=== PATIENT | female | born 1935 | race Caucasian/White ===

== ENCOUNTER → 2017-01-23 | Outpatient (CLI) | payer MEDICARE, BC ==
--- NOTE | 2017-01-24 15:12 | CR ---
EXAM DATE: 01/23/17 PATIENT'S AGE: 81 Patient: PASCUAL CHAVIRA Facility: [place], [place] Site . Site : 1935 Study: XRay Abdomen [id number]/[id number] 5:16:47 PM Ordering Physician: Ritchie June Final Report: Indication: Pain. Technique: View. Impression: Nonspecific bowel gas pattern with air and stool throughout the colon. No air- filled dilated small bowel. Extensive posterior and interbody lumbar fusion L1 through L5. Cardiac pacing wires. Heart size is mildly enlarged. Scarring or small effusions blunt the costophrenic angles slightly. Mild osteoarthritis left greater than right hips. Dictated by Alex Perrin MD @ Jan 24 2017 2:28PM (Electronic Signature) Report Signed by Proxy. KIA
== END ==
LOC: MW.CHIM 15:21
PROVIDERS: ATTEND Internal Medicine
DX: I50.9 Heart failure, unspecified (principal); I27.2 Other secondary pulmonary hypertension; R10.9 Unspecified abdominal pain; Z98.1 Arthrodesis status; M16.0 Bilateral primary osteoarthritis of hip; E87.8 Other disorders of electrolyte and fluid balance, not elsewhere classified; E86.0 Dehydration
CPT/HCPCS: 36415; 74020; 74020-26; 80053; 80074; 81001; 83540; 83880; 85025; 85652; 86140; G0463

== ENCOUNTER → 2017-01-25 | Outpatient (CLI) | payer MEDICARE, BC | LOC: MW.CHIM 10:46 | PROVIDERS: ATTEND Internal Medicine | DX: E87.6 Hypokalemia (principal); R10.9 Unspecified abdominal pain; E87.8 Other disorders of electrolyte and fluid balance, not elsewhere classified; E86.0 Dehydration; T50.2X5A Adverse effect of carbonic-anhydrase inhibitors, benzothiadiazides and other diuretics, initial encounter | CPT/HCPCS: 36415; 80053; 85025; G0463 ==

== ENCOUNTER → 2017-01-30 | Outpatient (CLI) | payer MEDICARE, BC ==
[2017-01-30 11:53] LABS: CHLORIDE,CL 98 mmol/L (98-110); SODIUM,NA 138 mmol/L (136-146)
== END ==
LOC: MW.CHIM 10:53
PROVIDERS: ATTEND Internal Medicine
DX: E87.6 Hypokalemia (principal); E87.8 Other disorders of electrolyte and fluid balance, not elsewhere classified; E86.9 Volume depletion, unspecified; I50.9 Heart failure, unspecified; E86.0 Dehydration
CPT/HCPCS: 36415; 80048; G0463

== ENCOUNTER 2017-02-04 08:29 | Inpatient (IN) | payer MEDICARE, BC ==
[2017-02-04] MEDS ORDERED: Albuterol/Ipratropium 3.0-0.5 MG/3 ML Neb Soln NEB ONE (08:38)
--- NOTE | 2017-02-04 08:42 | EDM.PDOC ---
ED HPI GENERAL MEDICAL PROBLEM - General Stated Complaint: AMBALANCE Time Seen by Provider: 02/04/17 08:43 Source of Information: Reports: Patient History Limitations: Reports: No Limitations - History of Present Illness INITIAL COMMENTS - FREE TEXT/NARRATIVE: History of present illness: [] She presents with shortness of breath that began yesterday. It has progressed and this morning she felt like her "bra was too tight" but denied chest pain. She denies cough, fevers, chills, dizziness or syncope. Patient is followed by Dr. Ayon and Dr. SANDS she has a pacemaker was recently taken off of all of her cardiac meds and just kept on Lasix due to decreasing renal function per patient. She uses 2 inhalers at home and has been using them without improvement. Review of systems: As per history of present illness and below otherwise all systems reviewed and negative. Past medical history: As per history of present illness and as reviewed below otherwise noncontributory. Surgical history: As per history of present illness and as reviewed below otherwise noncontributory. Social history: No reported history of drug or alcohol abuse. Family history: As per history of present illness and as reviewed below otherwise noncontributory. Physical exam: General: Well developed, well nourished in NAD HEENT: Atraumatic, normocephalic, pupils reactive, negative for conjunctival pallor or scleral icterus, mucous membranes dry, throat clear, neck supple, nontender, trachea midline. Lungs: Clear to auscultation, breath sounds equal bilaterally, chest nontender. Crackles bilateral bases no respiratory distress Heart: S1S2, regular, negative for clicks, rubs, or JVD. Positive bilateral lower extremity edema 2 Abdomen: Soft, nondistended, nontender. Negative for masses or hepatosplenomegaly. Negative for costovertebral tenderness. Pelvis: Stable nontender. Genitourinary: Deferred. Rectal: Deferred. Extremities: Atraumatic, negative for cords or calf pain. Neurovascular unremarkable. Neuro: Awake, alert, oriented. Cranial nerves II through XII unremarkable. Cerebellum unremarkable. Motor and sensory unremarkable throughout. Exam nonfocal. Diagnostics: [] Labs and chest x-ray shows CHF exacerbation with atelectasis on chest x-ray possible early pneumonia in the right lower lobe versus atelectasis on x-ray Therapeutics: [] Patient was given breathing treatments while in the ED and remained stable Impression: [] CHF exacerbation Plan: [] Admit for observation and further treatment Definitive disposition and diagnosis as appropriate pending reevaluation and review of above. - Related Data Allergies Allergy/AdvReac Type Severity Reaction Status Date / Time hydrochlorothiazide Allergy Cannot Verified 06/21/15 16:22 Remember Sulfa (Sulfonamide Allergy Cannot Verified 06/21/15 16:22 Antibiotics) Remember Home Meds: Home Meds Aspirin 81 mg PO DAILY 06/21/15 [History] Cholecalciferol (Vitamin D3) [Vitamin D3] 2,000 unit PO DAILY 06/21/15 [History] Fish Oil/[place]-3 Fatty Acids [Fish Oil] 1,000 mg PO DAILY 06/21/15 [History] Furosemide 80 mg PO DAILY 06/21/15 [History] Losartan [Cozaar] 100 mg PO DAILY 06/21/15 [History] Lutein 6 mg PO DAILY 06/21/15 [History] Metoprolol Tartrate 50 mg PO BID 06/21/15 [History] Omeprazole 20 mg PO DAILY 06/21/15 [History] Simvastatin [Zocor] 20 mg PO DAILY 06/21/15 [History] Zinc 50 mg PO DAILY 06/21/15 [History] amLODIPine/atorvaSTATin [Amlodipine-Atorvast 2.5-20 mg] 2.5 mg PO DAILY [History] Albuterol Sulfate [Proair Respiclick] 1 puff INH ASDIRECTED 02/04/17 [History] Clopidogrel [Plavix] 75 mg PO DAILY 02/04/17 [History] Glycerin/Propylene Glycol [Artificial Tears Drops] 1 drop EYEBOTH BID 02/04/17 [ History] Sertraline HCl [Sertraline HCl] 100 mg PO DAILY 02/04/17 [History] Sildenafil Citrate [Sildenafil] 20 mg PO DAILY 02/04/17 [History] Spironolactone [Aldactone] 25 mg PO DAILY 02/04/17 [History] Tiotropium [Spiriva HandiHaler] 18 mcg INH DAILY 02/04/17 [History] Past Medical History Other HEENT History: detatch retina right eye Other Musculoskeletal History: carpal tunnel syndrome. back surgery , fussion (L ,3,4,5) Social & Family History - Tobacco Use Smoking Status *Q: Former Smoker - Recreational Drug Use Recreational Drug Use: No ED ROS GENERAL - Review of Systems Review Of Systems: See Below (See history of present illness) ED EXAM, GENERAL - Physical Exam Exam: See Below (See history of present illness) Course - Vital Signs Last Recorded V/S: Last Vital Signs Temp 36.4 C 02/04/17 08:34 Pulse 78 02/04/17 09:59 Resp 20 02/04/17 09:59 BP 111/70 02/04/17 09:59 Pulse Ox 95 02/04/17 09:59 - Orders/Labs/Meds Orders: Active Orders 24 hr Category Date Time Status Cardiac Monitoring [RC] . DIRECTED Care 02/04/17 08:31 Active EKG Documentation Completion [RC] STAT Care 02/04/17 08:31 Active Oxygen Therapy, ED [RC] ASDIRECTED Care 02/04/17 08:31 Active RT Aerosol Therapy [RC] ASDIRECTED Care 02/04/17 08:38 Active Chest 2V [CR] Stat Exams 02/04/17 08:31 Taken Labs: Laboratory Tests 02/04/17 02/04/17 02/04/17 Range/Units 08:43 08:43 08:43 WBC 11.90 H (4.0-11.0) K/uL RBC 4.07 L (4.30-5.90) M/uL Hgb 11.6 L (12.0-16.0) g/dL Hct 36.4 (36.0-46.0) % MCV 89.4 (80.0-98.0) fL MCH 28.5 (27.0-32.0) pg MCHC 31.9 (31.0-37.0) g/dL RDW Std Deviation 49.1 (28.0-62.0) fl RDW Coeff of [place] 15 (11.0-15.0) % Plt Count 201 (150-400) K/uL MPV 9.00 (7.40-12.00) fL Neut % (Auto) 72.0 (48.0-80.0) % Lymph % (Auto) 11.5 L (16.0-40.0) % [place] % (Auto) 7.6 (0.0-15.0) % Eos % (Auto) 8.5 H (0.0-7.0) % Baso % (Auto) 0.4 (0.0-1.5) % Neut # (Auto) 8.6 H (1.4-5.7) K/uL Lymph # (Auto) 1.4 (0.6-2.4) K/uL [place] # (Auto) 0.9 H (0.0-0.8) K/uL Eos # (Auto) 1.0 H (0.0-0.7) K/uL Baso # (Auto) 0.1 (0.0-0.1) K/uL Nucleated RBC % 0.0 /100WBC Nucleated RBCs # 0 K/uL Sodium 138 (136-146) mmol/L Potassium 3.9 (3.5-5.1) mmol/L Chloride 105 (98-110) mmol/L Carbon Dioxide 22 (21-31) mmol/L BUN 14 (6.0-23.0) mg/dL Creatinine 0.9 (0.6-1.5) mg/dL Est Cr Clr Drug Dosing 34.62 mL/min Estimated GFR (MDRD) 59.9 ml/min Glucose 160 H (60-110) mg/dL Calcium 9.0 (8.8-10.8) mg/dL Total Bilirubin 1.2 (0.1-1.5) mg/dL AST 49 H (5-40) IU/L ALT 59 H (8-54) IU/L Alkaline Phosphatase 50 (40-150) Troponin I < 0.10 (0.0-0.29) NG/ML B-Natriuretic Peptide (<100) PG/ML Total Protein 7.2 (6.0-8.0) g/dL Albumin 3.8 (3.4-4.8) g/dL Globulin 3.4 (2.0-3.5) g/dL Albumin/Globulin Ratio 1.1 L (1.3-2.8) Urine Color Urine Appearance Urine pH (5.0-8.0) Ur Specific [place] (1.001-1.035) Urine Protein (NEGATIVE) mg/dL Urine Glucose (UA) (NEGATIVE) mg/dL Urine Ketones (NEGATIVE) mg/dL Urine Occult Blood (NEGATIVE) Urine Nitrite (NEGATIVE) Urine Bilirubin (NEGATIVE) Urine Urobilinogen (<2.0) EU/dL Ur Leukocyte Esterase (NEGATIVE) Urine RBC (0-2/HPF) Urine WBC (0-5/HPF) Ur Epithelial Cells (NONE-FEW) Urine Bacteria (NEGATIVE) 02/04/17 02/04/17 Range/Units 08:43 09:00 WBC (4.0-11.0) K/uL RBC (4.30-5.90) M/uL Hgb (12.0-16.0) g/dL Hct (36.0-46.0) % MCV (80.0-98.0) fL MCH (27.0-32.0) pg MCHC (31.0-37.0) g/dL RDW Std Deviation (28.0-62.0) fl RDW Coeff of [place] (11.0-15.0) % Plt Count (150-400) K/uL MPV (7.40-12.00) fL Neut % (Auto) (48.0-80.0) % Lymph % (Auto) (16.0-40.0) % [place] % (Auto) (0.0-15.0) % Eos % (Auto) (0.0-7.0) % Baso % (Auto) (0.0-1.5) % Neut # (Auto) (1.4-5.7) K/uL Lymph # (Auto) (0.6-2.4) K/uL [place] # (Auto) (0.0-0.8) K/uL Eos # (Auto) (0.0-0.7) K/uL Baso # (Auto) (0.0-0.1) K/uL Nucleated RBC % /100WBC Nucleated RBCs # K/uL Sodium (136-146) mmol/L Potassium (3.5-5.1) mmol/L Chloride (98-110) mmol/L Carbon Dioxide (21-31) mmol/L BUN (6.0-23.0) mg/dL Creatinine (0.6-1.5) mg/dL Est Cr Clr Drug Dosing mL/min Estimated GFR (MDRD) ml/min Glucose (60-110) mg/dL Calcium (8.8-10.8) mg/dL Total Bilirubin (0.1-1.5) mg/dL AST (5-40) IU/L ALT (8-54) IU/L Alkaline Phosphatase (40-150) Troponin I (0.0-0.29) NG/ML B-Natriuretic Peptide 699 H (<100) PG/ML Total Protein (6.0-8.0) g/dL Albumin (3.4-4.8) g/dL Globulin (2.0-3.5) g/dL Albumin/Globulin Ratio (1.3-2.8) Urine Color YELLOW Urine Appearance CLEAR Urine pH 6.0 (5.0-8.0) Ur Specific [place] 1.010 (1.001-1.035) Urine Protein NEGATIVE (NEGATIVE) mg/dL Urine Glucose (UA) NEGATIVE (NEGATIVE) mg/dL Urine Ketones NEGATIVE (NEGATIVE) mg/dL Urine Occult Blood NEGATIVE (NEGATIVE) Urine Nitrite NEGATIVE (NEGATIVE) Urine Bilirubin NEGATIVE (NEGATIVE) Urine Urobilinogen 0.2 (<2.0) EU/dL Ur Leukocyte Esterase NEGATIVE (NEGATIVE) Urine RBC 0-1 (0-2/HPF) Urine WBC 0-1 (0-5/HPF) Ur Epithelial Cells RARE (NONE-FEW) Urine Bacteria RARE (NEGATIVE) Meds: Medications Discontinued Medications Generic Name Dose Route Start Last Admin Trade Name Freq PRN Reason Stop Dose Admin Albuterol/Ipratropium 3 ml 02/04/17 08:38 02/04/17 08:47 Duoneb 3.0-0.5 Mg/3 Ml NEB 02/04/17 08:39 3 ml ONETIME ONE Administration Departure - Departure Time of Disposition: 10:15 Disposition: Admitted As Inpatient 65 Condition: good Clinical Impression: Atelectasis CHF exacerbation Qualifiers: Congestive heart failure type: unspecified congestive heart failure type Qualified Code(s): I50.9 - Heart failure, unspecified - Discharge Information - My Orders Last 24 Hours: My Active Orders 02/04/17 08:31 Cardiac Monitoring [RC] . DIRECTED EKG Documentation Completion [RC] STAT Oxygen Therapy, ED [RC] ASDIRECTED Chest 2V [CR] Stat 02/04/17 08:38 RT Aerosol Therapy [RC] ASDIRECTED - Assessment/Plan Last 24 Hours: My Active Orders 02/04/17 08:31 Cardiac Monitoring [RC] . DIRECTED EKG Documentation Completion [RC] STAT Oxygen Therapy, ED [RC] ASDIRECTED Chest 2V [CR] Stat 02/04/17 08:38 RT Aerosol Therapy [RC] ASDIRECTED
[2017-02-04] MEDS ORDERED: Acetaminophen 325 MG Tab PO PRN (11:26)
[2017-02-04] MEDS ORDERED: Sodium Chloride 0.9% 10 ML Syringe FLUSH PRN (11:26)
[2017-02-04] MEDS ORDERED: Temazepam 15 MG Cap PO PRN (11:26)
[2017-02-04] MEDS ORDERED: Bisacodyl 5 MG Tab PO PRN (11:26)
[2017-02-04] MEDS ORDERED: Sodium Chloride 0.9% 2.5 ML Syringe FLUSH PRN (11:26)
[2017-02-04] MEDS ORDERED: Furosemide 40 MG/4 ML VIAL IVPUSH ONE (12:00)
[2017-02-04] MEDS: Albuterol/Ipratropium 3.0-0.5 MG/3 ML Neb Soln NEB SCH ×3 (12:03→22:53)
--- NOTE | 2017-02-04 12:12 | PCM.HP ---
H&P History of Present Illness - General Date of Service: 02/04/17 Admit Problem/Dx: Admission Diagnosis/Problem Admission Diagnosis/Problem Pneumonia Source of Information: Patient, Family, Provider, RN - History of Present Illness Initial Comments - Free Text/Narative: She presented to the ED this am with complaint of severe dyspnea. She has not noted fever. She sleeps in a recliner No chest pain. no cough - Related Data Allergies/Adverse Reactions: Allergies Allergy/AdvReac Type Severity Reaction Status Date / Time hydrochlorothiazide Allergy Cannot Verified 06/21/15 16:22 Remember Sulfa (Sulfonamide Allergy Cannot Verified 06/21/15 16:22 Antibiotics) Remember Home Medications: Home Meds Aspirin 81 mg PO DAILY 06/21/15 [History] Cholecalciferol (Vitamin D3) [Vitamin D3] 2,000 unit PO DAILY 06/21/15 [History] Fish Oil/[place]-3 Fatty Acids [Fish Oil] 1,000 mg PO DAILY 06/21/15 [History] Furosemide 20 mg PO BID 06/21/15 [History] Losartan [Cozaar] 100 mg PO DAILY 06/21/15 [History] Lutein 6 mg PO DAILY 06/21/15 [History] Metoprolol Tartrate 50 mg PO BID 06/21/15 [History] Omeprazole 20 mg PO DAILY 06/21/15 [History] Simvastatin [Zocor] 20 mg PO DAILY 06/21/15 [History] Zinc 50 mg PO DAILY 06/21/15 [History] amLODIPine/atorvaSTATin [Amlodipine-Atorvast 2.5-20 mg] 2.5 mg PO DAILY [History] Albuterol Sulfate [Proair Respiclick] 1 puff INH ASDIRECTED 02/04/17 [History] Clopidogrel [Plavix] 75 mg PO DAILY 02/04/17 [History] Glycerin/Propylene Glycol [Artificial Tears Drops] 1 drop EYEBOTH BID 02/04/17 [ History] Sertraline HCl [Sertraline HCl] 100 mg PO DAILY 02/04/17 [History] Sildenafil Citrate [Sildenafil] 20 mg PO DAILY 02/04/17 [History] Spironolactone [Aldactone] 25 mg PO DAILY 02/04/17 [History] Tiotropium [Spiriva HandiHaler] 18 mcg INH DAILY 02/04/17 [History] Past Medical History HEENT History: Reports: Other (See Below) Other HEENT History: detatch retina right eye Cardiovascular History: Reports: Afib, CAD, Hypertension, MS, Stents Respiratory History: Reports: COPD, Other (See Below) Other Respiratory History: Pulmonary HTN Gastrointestinal History: Reports: Chronic Constipation, Hemorrhoids. Denies: Cirrhosis Genitourinary History: Reports: UTI, Recurrent. Denies: Chronic Renal Insuffiency [employer] History: Reports: Musculoskeletal History: Reports: Other (See Below) Other Musculoskeletal History: carpal tunnel syndrome. back surgery , fussion (L ,3,4,5) Neurological History: Reports: None. Denies: Alzheimers Disease, CVA, MS, Seizure Psychiatric History: Reports: Anxiety Endocrine/Metabolic History: Reports: Osteoporosis. 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 in the past) - Infectious Disease History Infectious Disease History: Reports: Chicken Pox - Past Surgical History Head Surgeries/Procedures: Reports: None HEENT Surgical History: Reports: Eye Surgery Cardiovascular Surgical History: Reports: Carotid Stents, Pacer Respiratory Surgical History: Reports: None GI Surgical History: Reports: Appendectomy Female Surgical History: Reports: Hysterectomy, Other (See Below) Other Female Surgeries/Procedures: Bladder repair Endocrine Surgical History: Reports: None Neurological Surgical History: Reports: None Musculoskeletal Surgical History: Reports: Other (See Below) Other Musculoskeletal Surgeries/Procedures:: torn achilles tendon repair, carpal tunnel Dermatological Surgical History: Reports: None Social & Family History - Family History Family Medical History: Noncontributory HEENT: Reports: Glaucoma, Macular Degeneration Cardiac: Reports: MS GI: Reports: None Neurological: Reports: CVA Oncologic: Reports: Breast, Skin, Uterine - Tobacco Use Smoking Status *Q: Former Smoker Years of Tobacco use: 20 Used Tobacco, but Quit: Yes Month Tobacco Last Used: 09/1959 Second Hand Smoke Exposure: No - Caffeine Use Caffeine Use: Reports: None - Recreational Drug Use Recreational Drug Use: No H&P Review of Systems - Review of Systems: Review Of Systems: See Below General: Denies: Fever, Chills, Diaphoresis HEENT: Denies: Ear Pain Pulmonary: Reports: Shortness of Breath. Denies: Cough, Sputum, Hemoptysis Cardiovascular: Denies: Chest Pain, Palpitations Gastrointestinal: Denies: Abdominal Pain, Hematemesis, Hematochezia, Melena, Nausea, Vomiting Exam - Exam Exam: See Below - Vital Signs Vital Signs: Last Vital Signs Temp 97.6 F 02/04/17 11:53 Pulse 71 02/04/17 11:53 Resp 22 H 02/04/17 11:53 BP 105/47 L 02/04/17 11:53 Pulse Ox 93 L 02/04/17 11:53 Weight: 166.2 kg - Exam Quality Assessment: Supplemental Oxygen General: Alert, Oriented, Cooperative HEENT: Conjunctiva Clear, EOMI Neck: Supple, Trachea Midline Lungs: Clear to Auscultation, Other (some increased work of breathing; prolongation of expiration) Cardiovascular: Irregular Rhythm, Other (monitor shows wide QRS with varied morphology; some paced beats; irregular rhythm) Abdomen: Soft. No: Distention (Female) Exam: Deferred Extremities: Edema (one plus bilateral pretibial edema) Neurological: Cranial Nerves Intact, Normal Speech Neuro Extensive - Motor, Sensory, Reflexes: No: Facial palsy (L), Facial Palsy ( R), Hemeplagia (R), Hemeplagia (L) Psychiatric: Alert, Normal Affect. No: Depressed, Agitated - Patient Data Result Diagrams: 02/04/17 08:43 02/04/17 08:43 Imaging Impressions last 24 hrs: CXR: hyperexpansion; pacemaker noted; infiltrate LLL; increased pulmonary vascular prominence *Q Meaningful Use (ADM) - VTE *Q VTE Criteria *Q: - Stroke *Q Stroke Criteria *Q: - AMI *Q AMI Criteria *Q: - Problem List (1) CAD (coronary artery disease) SNOMED Code(s): 71099156 ICD Code: I25.10 - ATHSCL HEART DISEASE OF [place] CORONARY ARTERY W/O ANG PCTRS Status: Acute Current Visit: Yes (2) Pneumonia SNOMED Code(s): 975681629 ICD Code: J18.9 - PNEUMONIA, UNSPECIFIED ORGANISM Status: Acute Current Visit: Yes (3) Hypoxia SNOMED Code(s): 334076839, 157745801 ICD Code: R09.02 - HYPOXEMIA Status: Acute Current Visit: Yes (4) CHF exacerbation SNOMED Code(s): 94530234 ICD Code: I50.9 - HEART FAILURE, UNSPECIFIED Status: Acute Current Visit : Yes Qualifiers: Congestive heart failure type: unspecified congestive heart failure type Qualified Code(s): I50.9 - Heart failure, unspecified (5) Cardiac dysrhythmia SNOMED Code(s): 308632348 ICD Code: I49.9 - CARDIAC ARRHYTHMIA, UNSPECIFIED Status: Acute Current Visit: No Qualifiers: Arrhythmia type: unspecified cardiac arrhythmia Qualified Code(s): I49.9 - Cardiac arrhythmia, unspecified Problem List Initiated/Reviewed/Updated: Yes Orders Last 24hrs: Active Orders 24 hr Category Date Time Status Admission Status [Patient Status] [ADT] Routine ADT 02/04/17 10:23 Active Patient Status [ADT] Routine ADT 02/04/17 11:26 Active Cardiac Monitoring [RC] . DIRECTED Care 02/04/17 10:23 Active Communication Order [RC] ASDIRECTED Care 02/04/17 11:34 Active Oxygen Therapy [RC] PRN Care 02/04/17 11:26 Active RT Aerosol Therapy [RC] ASDIRECTED Care 02/04/17 11:32 Active Telemetry Monitoring [Cardiac Monitoring] [RC] Q8H Care 02/04/17 10:05 Active VTE/DVT Education [RC] PER UNIT ROUTINE Care 02/04/17 11:26 Active Vital Signs [RC] Q4H Care 02/04/17 11:26 Active Regular Diet [DIET] Diet 02/04/17 Lunch Active B-TYPE NATRIURETIC PEPTIDE,BNP [CHEM] AM Lab 02/05/17 05:11 Ordered B-TYPE NATRIURETIC PEPTIDE,BNP [CHEM] AM Lab 02/06/17 05:11 Ordered CBC WITH AUTO DIFF [HEME] AM Lab 02/05/17 05:11 Ordered CBC WITH AUTO DIFF [HEME] AM Lab 02/06/17 05:11 Ordered CBC WITH AUTO DIFF [HEME] AM Lab 02/07/17 05:11 Ordered CBC WITH AUTO DIFF [HEME] AM Lab 02/08/17 05:11 Ordered COMPREHENSIVE METABOLIC PN,CMP [CHEM] AM Lab 02/05/17 05:11 Ordered COMPREHENSIVE METABOLIC PN,CMP [CHEM] AM Lab 02/06/17 05:11 Ordered COMPREHENSIVE METABOLIC PN,CMP [CHEM] AM Lab 02/07/17 05:11 Ordered COMPREHENSIVE METABOLIC PN,CMP [CHEM] AM Lab 02/08/17 05:11 Ordered LIPID PANEL [CHEM] Routine Lab 02/05/17 05:00 Ordered MAGNESIUM [CHEM] AM Lab 02/05/17 05:11 Ordered MAGNESIUM [CHEM] AM Lab 02/06/17 05:11 Ordered MAGNESIUM [CHEM] AM Lab 02/07/17 05:11 Ordered MAGNESIUM [CHEM] AM Lab 02/08/17 05:11 Ordered Acetaminophen [Tylenol] Med 02/04/17 11:26 Active 325 mg PO Q4H PRN Albuterol/Ipratropium [DuoNeb 3.0-0.5 MG/3 ML] Med 02/04/17 11:45 Active 3 ml NEB Q6H Aspirin Med 02/05/17 09:00 Active 81 mg PO DAILY Bisacodyl [Dulcolax] Med 02/04/17 11:26 Active 5 mg PO DAILY PRN Clopidogrel [Plavix] Med 02/05/17 09:00 Active 75 mg PO DAILY Enoxaparin [Lovenox] Med 02/05/17 09:00 Active 40 mg SUBCUT DAILY Fish Oil/[place]-3 Fatty Acids [Fish Oil] Med 02/05/17 09:00 Active 1 gm PO DAILY Furosemide [Lasix] Med 02/04/17 21:00 Active 20 mg PO BID Glycerin/Propylene Glycol [Artificial Tears Drops] Med 02/04/17 21:00 Active 1 drop EYEBOTH BID Levofloxacin/Dextrose 5%-Water [Levaquin in D5W 750 MG/ Med 02/04/17 12:00 Active 150 ML] 750 mg Premix Bag 1 bag IV Q48H Simvastatin [Zocor] Med 02/05/17 09:00 Active 20 mg PO DAILY Sodium Chloride 0.9% [Saline Flush] Med 02/04/17 11:26 Active 10 ml FLUSH ASDIRECTED PRN Sodium Chloride 0.9% [Saline Flush] Med 02/04/17 11:26 Active 2.5 ml FLUSH ASDIRECTED PRN Spironolactone [Aldactone] Med 02/05/17 09:00 Active 25 mg PO DAILY Temazepam [Restoril] Med 02/04/17 11:26 Active 15 mg PO BEDTIME PRN Saline Lock Insert [OM.PC] Routine Oth 02/04/17 11:26 Ordered Resuscitation Status Routine Resus Stat 02/04/17 11:26 Ordered Medication Orders Acetaminophen (Tylenol) 325 mg PO Q4H PRN PRN Reason: Pain (Mild 1-3)/fever Albuterol/Ipratropium (Duoneb 3.0-0.5 Mg/3 Ml) 3 ml NEB Q6H [facility] Last Admin: 02/04/17 12:03 Dose: 3 ml Aspirin (Aspirin) 81 mg PO DAILY [facility] Bisacodyl (Dulcolax) 5 mg PO DAILY PRN PRN Reason: Constipation Clopidogrel Bisulfate (Plavix) 75 mg PO DAILY [facility] Enoxaparin Sodium (Lovenox) 40 mg SUBCUT DAILY [facility] Fish Oil (Fish Oil) 1 gm PO DAILY [facility] Furosemide (Lasix) 20 mg PO BID [facility] Levofloxacin/Dextrose 750 mg/ (Premix) 150 mls @ 100 mls/hr IV Q48H [facility] Non-Formulary Medication (Glycerin/Propylene Glycol [Artificial Tears Drops]) 1 drop EYEBOTH BID [facility] Simvastatin (Zocor) 20 mg PO DAILY [facility] Sodium Chloride (Saline Flush) 10 ml FLUSH ASDIRECTED PRN PRN Reason: Keep Vein Open Sodium Chloride (Saline Flush) 2.5 ml FLUSH ASDIRECTED PRN PRN Reason: Keep Vein Open Spironolactone (Aldactone) 25 mg PO DAILY [facility] Temazepam (Restoril) 15 mg PO BEDTIME PRN PRN Reason: Sleep Assessment/Plan Comment:: she denies a known history of CHF will seek results of echo at Dr Johnson's office I suspect that she also has pneumonia based on CXR and clinical picture monitor closely elevated LFTs might be related to gut edema will cover with levaquin. She requests DNR status. Kevin Che MD
[2017-02-04] MEDS: Levofloxacin/Dextrose 5%-Water 750 MG in Premix Bag 1 BAG IV SCH (12:22)
[2017-02-04] MEDS: Furosemide 20 MG Tab PO SCH (20:40)
[2017-02-04] MEDS: GLYCERIN EYEBOTH SCH (22:05)
[2017-02-04] MEDS: PROPYLENE GLYCOL EYEBOTH SCH (22:05)
[2017-02-04] MEDS: [UNRECOGNIZED DRUG - OTHER] EYEBOTH SCH (22:05)
[2017-02-05 05:55] LABS: CHLORIDE,CL 104 mmol/L (98-110); SODIUM,NA 140 mmol/L (136-146)
[2017-02-05] MEDS: Albuterol/Ipratropium 3.0-0.5 MG/3 ML Neb Soln NEB SCH ×4 (05:55→23:44)
[2017-02-05] MEDS: Aspirin 81 MG Tab.Chew PO SCH (08:18)
[2017-02-05] MEDS: Simvastatin 20 MG Tab PO SCH (08:18)
[2017-02-05] MEDS: Furosemide 20 MG Tab PO SCH ×2 (08:18→20:50)
[2017-02-05] MEDS: Spironolactone 25 MG Tab PO SCH (08:19)
[2017-02-05] MEDS: Fish Oil/Omega-3 Fatty Acids 1 Gm Cap PO SCH (08:19)
[2017-02-05] MEDS: Clopidogrel 75 MG Tab PO SCH (08:19)
[2017-02-05] MEDS: Enoxaparin 40 MG/0.4 ML Syringe SUBCUT SCH (08:19)
[2017-02-05] MEDS: PROPYLENE GLYCOL EYEBOTH SCH ×2 (08:25→20:39)
[2017-02-05] MEDS: GLYCERIN EYEBOTH SCH ×2 (08:25→20:39)
[2017-02-05] MEDS: [UNRECOGNIZED DRUG - OTHER] EYEBOTH SCH ×2 (08:25→20:39)
[2017-02-05] MEDS ORDERED: Potassium Chloride 20 MEQ Tab.ER PO ONE (11:18)
--- NOTE | 2017-02-05 11:33 | PCM.PN ---
[id number] is still short of breath but she feels improved. - Patient Data Vitals - most recent: Last Vital Signs Temp 98.8 F 02/05/17 04:00 Pulse 84 02/05/17 04:00 Resp 16 02/05/17 04:00 BP 116/72 02/05/17 04:00 Pulse Ox 92 L 02/05/17 04:00 Weight - most recent: 75.387 kg I&O - last 24 hours: Intake & Output 02/04/17 02/05/17 02/05/17 22:59 06:59 14:59 Intake Total 600 250 Output Total 2050 1050 Balance -1450 -800 Lab Results last 24 hrs: Laboratory Results - last 24 hr 02/05/17 02/05/17 02/05/17 Range/Units 04:55 04:55 04:55 WBC 9.91 (4.0-11.0) K/uL RBC 3.77 L (4.30-5.90) M/uL Hgb 10.8 L (12.0-16.0) g/dL Hct 34.1 L (36.0-46.0) % MCV 90.5 (80.0-98.0) fL MCH 28.6 (27.0-32.0) pg MCHC 31.7 (31.0-37.0) g/dL RDW Std Deviation 50.4 (28.0-62.0) fl RDW Coeff of German 15 (11.0-15.0) % Plt Count 205 (150-400) K/uL MPV 9.10 (7.40-12.00) fL Neut % (Auto) 63.2 (48.0-80.0) % Lymph % (Auto) 16.5 (16.0-40.0) % [place] % (Auto) 10.8 (0.0-15.0) % Eos % (Auto) 9.0 H (0.0-7.0) % Baso % (Auto) 0.5 (0.0-1.5) % Neut # (Auto) 6.3 H (1.4-5.7) K/uL Lymph # (Auto) 1.6 (0.6-2.4) K/uL [place] # (Auto) 1.1 H (0.0-0.8) K/uL Eos # (Auto) 0.9 H (0.0-0.7) K/uL Baso # (Auto) 0.1 (0.0-0.1) K/uL Nucleated RBC % 0.0 /100WBC Nucleated RBCs # 0 K/uL Sodium 140 (136-146) mmol/L Potassium 3.3 L (3.5-5.1) mmol/L Chloride 104 (98-110) mmol/L Carbon Dioxide 27 (21-31) mmol/L BUN 13 (6.0-23.0) mg/dL Creatinine 0.8 (0.6-1.5) mg/dL Est Cr Clr Drug Dosing 38.94 mL/min Estimated GFR (MDRD) > 60.0 ml/min Glucose 98 (60-110) mg/dL Calcium 8.9 (8.8-10.8) mg/dL Magnesium 1.6 (1.5-2.3) mEq/L Total Bilirubin 1.2 (0.1-1.5) mg/dL AST 36 (5-40) IU/L ALT 45 (8-54) IU/L Alkaline Phosphatase 42 (40-150) B-Natriuretic Peptide (<100) PG/ML Total Protein 6.8 (6.0-8.0) g/dL Albumin 3.5 (3.4-4.8) g/dL Globulin 3.3 (2.0-3.5) g/dL Albumin/Globulin Ratio 1.1 L (1.3-2.8) Triglycerides 61 (10-190) mg/dL Cholesterol 100 L (131-240) mg/dL LDL Cholesterol, Calc 48 L (60-180) mg/dL VLDL Cholesterol 12 (5-55) mg/dL HDL Cholesterol 40 (40-80) mg/dL Cholesterol/HDL Ratio 2.5 L (3.3-6.0) 05/14/17 Range/Units 04:55 WBC (4.0-11.0) K/uL RBC (4.30-5.90) M/uL Hgb (12.0-16.0) g/dL Hct (36.0-46.0) % MCV (80.0-98.0) fL MCH (27.0-32.0) pg MCHC (31.0-37.0) g/dL RDW Std Deviation (28.0-62.0) fl RDW Coeff of German (11.0-15.0) % Plt Count (150-400) K/uL MPV (7.40-12.00) fL Neut % (Auto) (48.0-80.0) % Lymph % (Auto) (16.0-40.0) % [place] % (Auto) (0.0-15.0) % Eos % (Auto) (0.0-7.0) % Baso % (Auto) (0.0-1.5) % Neut # (Auto) (1.4-5.7) K/uL Lymph # (Auto) (0.6-2.4) K/uL [place] # (Auto) (0.0-0.8) K/uL Eos # (Auto) (0.0-0.7) K/uL Baso # (Auto) (0.0-0.1) K/uL Nucleated RBC % /100WBC Nucleated RBCs # K/uL Sodium (136-146) mmol/L Potassium (3.5-5.1) mmol/L Chloride (98-110) mmol/L Carbon Dioxide (21-31) mmol/L BUN (6.0-23.0) mg/dL Creatinine (0.6-1.5) mg/dL Est Cr Clr Drug Dosing mL/min Estimated GFR (MDRD) ml/min Glucose (60-110) mg/dL Calcium (8.8-10.8) mg/dL Magnesium (1.5-2.3) mEq/L Total Bilirubin (0.1-1.5) mg/dL AST (5-40) IU/L ALT (8-54) IU/L Alkaline Phosphatase (40-150) B-Natriuretic Peptide 512 H (<100) PG/ML Total Protein (6.0-8.0) g/dL Albumin (3.4-4.8) g/dL Globulin (2.0-3.5) g/dL Albumin/Globulin Ratio (1.3-2.8) Triglycerides (10-190) mg/dL Cholesterol (131-240) mg/dL LDL Cholesterol, Calc (60-180) mg/dL VLDL Cholesterol (5-55) mg/dL HDL Cholesterol (40-80) mg/dL Cholesterol/HDL Ratio (3.3-6.0) Med Orders - Current: Current Medications Acetaminophen (Tylenol) 325 mg PO Q4H PRN PRN Reason: Pain (Mild 1-3)/fever Albuterol/Ipratropium (Duoneb 3.0-0.5 Mg/3 Ml) 3 ml NEB Q6H [facility] Last Admin: 02/05/17 05:55 Dose: 3 ml Aspirin (Aspirin) 81 mg PO DAILY [facility] Last Admin: 02/05/17 08:18 Dose: 81 mg Bisacodyl (Dulcolax) 5 mg PO DAILY PRN PRN Reason: Constipation Clopidogrel Bisulfate (Plavix) 75 mg PO DAILY [facility] Last Admin: 02/05/17 08:19 Dose: 75 mg Enoxaparin Sodium (Lovenox) 40 mg SUBCUT DAILY [facility] Last Admin: 02/05/17 08:19 Dose: 40 mg Fish Oil (Fish Oil) 1 gm PO DAILY [facility] Last Admin: 02/05/17 08:19 Dose: 1 gm Furosemide (Lasix) 20 mg PO BID [facility] Last Admin: 02/05/17 08:18 Dose: 20 mg Levofloxacin/Dextrose 750 mg/ (Premix) 150 mls @ 100 mls/hr IV Q48H [facility] Last Admin: 02/04/17 12:22 Dose: 100 mls/hr Non-Formulary Medication (Glycerin/Propylene Glycol [Artificial Tears Drops]) 1 drop EYEBOTH BID [facility] Last Admin: 02/05/17 08:25 Dose: Not Given Simvastatin (Zocor) 20 mg PO DAILY [facility] Last Admin: 02/05/17 08:18 Dose: 20 mg Sodium Chloride (Saline Flush) 10 ml FLUSH ASDIRECTED PRN PRN Reason: Keep Vein Open Sodium Chloride (Saline Flush) 2.5 ml FLUSH ASDIRECTED PRN PRN Reason: Keep Vein Open Spironolactone (Aldactone) 25 mg PO DAILY [facility] Last Admin: 02/05/17 08:19 Dose: 25 mg Temazepam (Restoril) 15 mg PO BEDTIME PRN PRN Reason: Sleep Last Admin: 02/04/17 22:06 Dose: 15 mg Discontinued Medications Albuterol/Ipratropium (Duoneb 3.0-0.5 Mg/3 Ml) 3 ml NEB ONETIME ONE Stop: 02/04/17 08:39 Last Admin: 02/04/17 08:47 Dose: 3 ml Furosemide (Lasix) 40 mg IVPUSH NOW ONE Stop: 02/04/17 12:01 Last Admin: 02/04/17 12:22 Dose: 40 mg Potassium Chloride (Klor-Con M20) 40 meq PO ONETIME ONE Stop: 02/05/17 11:19 - Exam Quality Assessment: supplemental oxygen General: alert, oriented Neck: trachea midline Lungs: Other (good tidal volumes; faint rales over the right lateral/posterior chest) - Problem List & Annotations (1) CAD (coronary artery disease) SNOMED Code(s): 09782110 Code(s): I25.10 - ATHSCL HEART DISEASE OF [place] CORONARY ARTERY W/O ANG PCTRS Status: Acute Current Visit: Yes (2) Pneumonia SNOMED Code(s): 555299825 Code(s): J18.9 - PNEUMONIA, UNSPECIFIED ORGANISM Status: Acute Current Visit: Yes (3) Hypoxia SNOMED Code(s): 441251934, 050870549 Code(s): R09.02 - HYPOXEMIA Status: Acute Current Visit: Yes (4) CHF exacerbation SNOMED Code(s): 97650145 Code(s): I50.9 - HEART FAILURE, UNSPECIFIED Status: Acute Current Visit: Yes Qualifiers: Congestive heart failure type: unspecified congestive heart failure type Qualified Code(s): I50.9 - Heart failure, unspecified (5) Cardiac dysrhythmia SNOMED Code(s): 529431949 Code(s): I49.9 - CARDIAC ARRHYTHMIA, UNSPECIFIED Status: Acute Current Visit: No Qualifiers: Arrhythmia type: unspecified cardiac arrhythmia Qualified Code(s): I49.9 - Cardiac arrhythmia, unspecified - Problem List Review Problem List Initiated/Reviewed/Updated: Yes - My Orders Last 24 Hours: My Active Orders 02/04/17 11:26 Patient Status [ADT] Routine Oxygen Therapy [RC] PRN Vital Signs [RC] Q4H Acetaminophen [Tylenol] 325 mg PO Q4H PRN Bisacodyl [Dulcolax] 5 mg PO DAILY PRN Sodium Chloride 0.9% [Saline Flush] 10 ml FLUSH ASDIRECTED PRN Sodium Chloride 0.9% [Saline Flush] 2.5 ml FLUSH ASDIRECTED PRN Temazepam [Restoril] 15 mg PO BEDTIME PRN Saline Lock Insert [OM.PC] Routine Resuscitation Status Routine 02/04/17 11:32 RT Aerosol Therapy [RC] ASDIRECTED 02/04/17 11:34 Communication Order [RC] ASDIRECTED 02/04/17 11:45 Albuterol/Ipratropium [DuoNeb 3.0-0.5 MG/3 ML] 3 ml NEB Q6H 02/04/17 12:00 Levofloxacin/Dextrose 5%-Water [Levaquin in D5W 750 MG/150 ML] 750 mg Premix Bag 1 bag IV Q48H 02/04/17 21:00 Furosemide [Lasix] 20 mg PO BID Glycerin/Propylene Glycol [Artificial Tears Drops] 1 drop EYEBOTH BID 02/04/17 Lunch Regular Diet [DIET] 02/05/17 09:00 Aspirin 81 mg PO DAILY Clopidogrel [Plavix] 75 mg PO DAILY Enoxaparin [Lovenox] 40 mg SUBCUT DAILY Fish Oil/[place]-3 Fatty Acids [Fish Oil] 1 gm PO DAILY Simvastatin [Zocor] 20 mg PO DAILY Spironolactone [Aldactone] 25 mg PO DAILY 02/06/17 05:11 B-TYPE NATRIURETIC PEPTIDE,BNP [CHEM] AM CBC WITH AUTO DIFF [HEME] AM COMPREHENSIVE METABOLIC PN,CMP [CHEM] AM LIPID PANEL [CHEM] Routine MAGNESIUM [CHEM] AM 02/07/17 05:11 CBC WITH AUTO DIFF [HEME] AM COMPREHENSIVE METABOLIC PN,CMP [CHEM] AM MAGNESIUM [CHEM] AM 02/08/17 05:11 CBC WITH AUTO DIFF [HEME] AM COMPREHENSIVE METABOLIC PN,CMP [CHEM] AM MAGNESIUM [CHEM] AM - Plan Plan:: she denies a known history of CHF will seek results of echo at Dr Johnson's office I suspect that she also has pneumonia based on CXR and clinical picture monitor closely elevated LFTs might be related to gut edema will cover with levaquin. She requests DNR status. Kevin Che MD 02/05/2017 I think that her symptoms are likely mainly due to pneumonia at this point. records from cardiology pending continue levaquin if RA oxygen saturation above 90% tomorrow am, likely discharge then. K3.3 noted; will supplement and recheck tomorrow. Kevin Che MD
--- NOTE | 2017-02-05 11:33 | PCM.SN ---
- Free Text/Narrative Note: she has an appointment with Dr Dugan tomorrow at 16:00 hrs. Anticipate discharge by lunch time tomorrow likely. Dickson MD
--- NOTE | 2017-02-05 17:53 | PCM.SN ---
- Free Text/Narrative Note: She talked to me about "code status". She desires full code but no long term care social worker life support as "a vegetable". will change to code level I Rodger Che MD
[2017-02-05] MEDS ORDERED: LORazepam 0.5 MG Tab PO PRN (20:37)
[2017-02-06] MEDS: Albuterol/Ipratropium 3.0-0.5 MG/3 ML Neb Soln NEB SCH ×4 (04:59→23:08)
[2017-02-06 05:38] LABS: CHLORIDE,CL 104 mmol/L (98-110); SODIUM,NA 140 mmol/L (136-146)
[2017-02-06] MEDS: Fish Oil/Omega-3 Fatty Acids 1 Gm Cap PO SCH (08:17)
[2017-02-06] MEDS: Clopidogrel 75 MG Tab PO SCH (08:17)
[2017-02-06] MEDS: Spironolactone 25 MG Tab PO SCH (08:17)
[2017-02-06] MEDS: Aspirin 81 MG Tab.Chew PO SCH (08:17)
[2017-02-06] MEDS: Simvastatin 20 MG Tab PO SCH (08:17)
[2017-02-06] MEDS: PROPYLENE GLYCOL EYEBOTH SCH (08:18)
[2017-02-06] MEDS: Furosemide 20 MG Tab PO SCH ×2 (08:18→20:31)
[2017-02-06] MEDS: Enoxaparin 40 MG/0.4 ML Syringe SUBCUT SCH (08:18)
[2017-02-06] MEDS: [UNRECOGNIZED DRUG - OTHER] EYEBOTH SCH (08:18)
[2017-02-06] MEDS: GLYCERIN EYEBOTH SCH (08:18)
[2017-02-06] MEDS: Carboxymethylcellulose Sodium 0.5% Ophth Soln 0.4 ML UD Box of 30 EYEBOTH SCH ×2 (09:11→20:31)
--- NOTE | 2017-02-06 12:06 | PCM.PN ---
- General Info Date of Service: 02/06/17 Admission Dx/Problem (Free Text): Admission Diagnosis/Problem Admission Diagnosis/Problem Pneumonia Functional Status: Reports: pain controlled - Review of Systems General: Reports: No Symptoms HEENT: Reports: no symptoms Pulmonary: Reports: shortness of breath Cardiovascular: Reports: Dyspnea on Exertion, Edema Gastrointestinal: Reports: No symptoms Genitourinary: Reports: no symptoms Musculoskeletal: Reports: no symptoms Skin: Reports: no symptoms Neurological: Reports: No Symptoms Psychiatric: Reports: no symptoms - Patient Data Vitals - most recent: Last Vital Signs Temp 36.5 C 02/06/17 07:53 Pulse 76 02/06/17 07:53 Resp 16 02/06/17 07:53 BP 126/60 02/06/17 07:53 Pulse Ox 92 L 02/06/17 07:53 Weight - most recent: 76 kg I&O - last 24 hours: Intake & Output 02/05/17 02/06/17 02/06/17 22:59 06:59 14:59 Intake Total 900 250 Output Total 1500 1250 Balance -600 -1000 Lab Results last 24 hrs: Laboratory Results - last 24 hr 02/05/17 02/06/17 02/06/17 Range/Units 19:28 04:58 04:58 WBC 9.06 (4.0-11.0) K/uL RBC 3.65 L (4.30-5.90) M/uL Hgb 10.4 L (12.0-16.0) g/dL Hct 33.1 L (36.0-46.0) % MCV 90.7 (80.0-98.0) fL MCH 28.5 (27.0-32.0) pg MCHC 31.4 (31.0-37.0) g/dL RDW Std Deviation 51.4 (28.0-62.0) fl RDW Coeff of German 16 H (11.0-15.0) % Plt Count 196 (150-400) K/uL MPV 8.70 (7.40-12.00) fL Neut % (Auto) 58.4 (48.0-80.0) % Lymph % (Auto) 15.8 L (16.0-40.0) % [place] % (Auto) 9.6 (0.0-15.0) % Eos % (Auto) 15.8 H (0.0-7.0) % Baso % (Auto) 0.4 (0.0-1.5) % Neut # (Auto) 5.3 (1.4-5.7) K/uL Lymph # (Auto) 1.4 (0.6-2.4) K/uL [place] # (Auto) 0.9 H (0.0-0.8) K/uL Eos # (Auto) 1.4 H (0.0-0.7) K/uL Baso # (Auto) 0.0 (0.0-0.1) K/uL Nucleated RBC % 0.0 /100WBC Nucleated RBCs # 0 K/uL Sodium 140 (136-146) mmol/L Potassium 4.1 (3.5-5.1) mmol/L Chloride 104 (98-110) mmol/L Carbon Dioxide 27 (21-31) mmol/L BUN 12 (6.0-23.0) mg/dL Creatinine 0.8 (0.6-1.5) mg/dL Est Cr Clr Drug Dosing 38.94 mL/min Estimated GFR (MDRD) > 60.0 ml/min Glucose 104 (60-110) mg/dL POC Glucose 121 H (60-110) mg/dL Calcium 9.0 (8.8-10.8) mg/dL Magnesium 1.7 (1.5-2.3) mEq/L Total Bilirubin 1.0 (0.1-1.5) mg/dL AST 31 (5-40) IU/L ALT 38 (8-54) IU/L Alkaline Phosphatase 39 L (40-150) B-Natriuretic Peptide (<100) PG/ML Total Protein 6.6 (6.0-8.0) g/dL Albumin 3.4 (3.4-4.8) g/dL Globulin 3.2 (2.0-3.5) g/dL Albumin/Globulin Ratio 1.1 L (1.3-2.8) Triglycerides 54 (10-190) mg/dL Cholesterol 100 L (131-240) mg/dL LDL Cholesterol, Calc 46 L (60-180) mg/dL VLDL Cholesterol 11 (5-55) mg/dL HDL Cholesterol 43 (40-80) mg/dL Cholesterol/HDL Ratio 2.3 L (3.3-6.0) 02/06/17 Range/Units 04:58 WBC (4.0-11.0) K/uL RBC (4.30-5.90) M/uL Hgb (12.0-16.0) g/dL Hct (36.0-46.0) % MCV (80.0-98.0) fL MCH (27.0-32.0) pg MCHC (31.0-37.0) g/dL RDW Std Deviation (28.0-62.0) fl RDW Coeff of German (11.0-15.0) % Plt Count (150-400) K/uL MPV (7.40-12.00) fL Neut % (Auto) (48.0-80.0) % Lymph % (Auto) (16.0-40.0) % [place] % (Auto) (0.0-15.0) % Eos % (Auto) (0.0-7.0) % Baso % (Auto) (0.0-1.5) % Neut # (Auto) (1.4-5.7) K/uL Lymph # (Auto) (0.6-2.4) K/uL [place] # (Auto) (0.0-0.8) K/uL Eos # (Auto) (0.0-0.7) K/uL Baso # (Auto) (0.0-0.1) K/uL Nucleated RBC % /100WBC Nucleated RBCs # K/uL Sodium (136-146) mmol/L Potassium (3.5-5.1) mmol/L Chloride (98-110) mmol/L Carbon Dioxide (21-31) mmol/L BUN (6.0-23.0) mg/dL Creatinine (0.6-1.5) mg/dL Est Cr Clr Drug Dosing mL/min Estimated GFR (MDRD) ml/min Glucose (60-110) mg/dL POC Glucose (60-110) mg/dL Calcium (8.8-10.8) mg/dL Magnesium (1.5-2.3) mEq/L Total Bilirubin (0.1-1.5) mg/dL AST (5-40) IU/L ALT (8-54) IU/L Alkaline Phosphatase (40-150) B-Natriuretic Peptide 442 H (<100) PG/ML Total Protein (6.0-8.0) g/dL Albumin (3.4-4.8) g/dL Globulin (2.0-3.5) g/dL Albumin/Globulin Ratio (1.3-2.8) Triglycerides (10-190) mg/dL Cholesterol (131-240) mg/dL LDL Cholesterol, Calc (60-180) mg/dL VLDL Cholesterol (5-55) mg/dL HDL Cholesterol (40-80) mg/dL Cholesterol/HDL Ratio (3.3-6.0) Med Orders - Current: Current Medications Acetaminophen (Tylenol) 325 mg PO Q4H PRN PRN Reason: Pain (Mild 1-3)/fever Albuterol/Ipratropium (Duoneb 3.0-0.5 Mg/3 Ml) 3 ml NEB Q6H [facility] Last Admin: 02/06/17 04:59 Dose: 3 ml Artificial Tears (Refresh Plus 0.5%) 1 each EYEBOTH BID [facility] Last Admin: 02/06/17 09:11 Dose: 1 drop Aspirin (Aspirin) 81 mg PO DAILY [facility] Last Admin: 02/06/17 08:17 Dose: 81 mg Bisacodyl (Dulcolax) 5 mg PO DAILY PRN PRN Reason: Constipation Clopidogrel Bisulfate (Plavix) 75 mg PO DAILY [facility] Last Admin: 02/06/17 08:17 Dose: 75 mg Enoxaparin Sodium (Lovenox) 40 mg SUBCUT DAILY [facility] Last Admin: 02/06/17 08:18 Dose: 40 mg Fish Oil (Fish Oil) 1 gm PO DAILY [facility] Last Admin: 02/06/17 08:17 Dose: 1 gm Furosemide (Lasix) 20 mg PO BID [facility] Last Admin: 02/06/17 08:18 Dose: 20 mg Levofloxacin/Dextrose 750 mg/ (Premix) 150 mls @ 100 mls/hr IV Q48H [facility] Last Admin: 02/04/17 12:22 Dose: 100 mls/hr Lorazepam (Ativan) 0.5 mg PO Q6H PRN PRN Reason: Agitation Last Admin: 02/05/17 20:50 Dose: 0.5 mg Simvastatin (Zocor) 20 mg PO BEDTIME [facility] Sodium Chloride (Saline Flush) 10 ml FLUSH ASDIRECTED PRN PRN Reason: Keep Vein Open Sodium Chloride (Saline Flush) 2.5 ml FLUSH ASDIRECTED PRN PRN Reason: Keep Vein Open Spironolactone (Aldactone) 25 mg PO DAILY [facility] Last Admin: 02/06/17 08:17 Dose: 25 mg Temazepam (Restoril) 15 mg PO BEDTIME PRN PRN Reason: Sleep Last Admin: 02/04/17 22:06 Dose: 15 mg Discontinued Medications Albuterol/Ipratropium (Duoneb 3.0-0.5 Mg/3 Ml) 3 ml NEB ONETIME ONE Stop: 02/04/17 08:39 Last Admin: 02/04/17 08:47 Dose: 3 ml Furosemide (Lasix) 40 mg IVPUSH NOW ONE Stop: 02/04/17 12:01 Last Admin: 02/04/17 12:22 Dose: 40 mg Non-Formulary Medication (Glycerin/Propylene Glycol [Artificial Tears Drops]) 1 drop EYEBOTH BID [facility] Last Admin: 02/06/17 08:18 Dose: Not Given Potassium Chloride (Klor-Con M20) 40 meq PO ONETIME ONE Stop: 02/05/17 11:19 Last Admin: 02/05/17 12:31 Dose: 40 meq Simvastatin (Zocor) 20 mg PO DAILY [facility] Last Admin: 02/06/17 08:17 Dose: 20 mg - Exam Quality Assessment: supplemental oxygen General: alert, oriented, cooperative, mild distress Neck: supple, no JVD, +2 carotid pulse wo bruit Lungs: Decreased breath sounds, Crackles, Rales Cardiovascular: Regular Rate, Regular Rhythm Abdomen: bowel sounds present, soft, no tenderness, no distension Extremities: edema (mild pedal edema) Wound/Incisions: healing well Neurological: no new focal deficit - Problem List Review Problem List Initiated/Reviewed/Updated: Yes - Plan Plan:: 02/06/17 Patient still requiring 2L of O2 and complaining of GARCIA pulmonary exam BL diminshed breath sounds at bases with wet crackles and poor aeration continue to monitor and try to wean off O2 anticipate DC tomorrow continue as per orders 02/05/17 she denies a known history of CHF will seek results of echo at Dr Johnson's office I suspect that she also has pneumonia based on CXR and clinical picture monitor closely elevated LFTs might be related to gut edema will cover with levaquin. She requests DNR status. Kevin Che MD 02/05/2017 I think that her symptoms are likely mainly due to pneumonia at this point. records from cardiology pending continue levaquin if RA oxygen saturation above 90% tomorrow am, likely discharge then. K3.3 noted; will supplement and recheck tomorrow. Kevin Che MD
[2017-02-06] MEDS: Levofloxacin/Dextrose 5%-Water 750 MG in Premix Bag 1 BAG IV SCH (12:38)
[2017-02-06] MEDS: Docusate Sodium 100 MG Cap PO PRN (12:38)
--- NOTE | 2017-02-06 14:47 | CR ---
EXAM DATE: 02/04/17 PATIENT'S AGE: 81 Patient: PASCUAL CHAVIRA Facility: [place], [place] Site . Site : [id number] Study: XRay Chest [id number]/13/2017 9:18:51 AM Ordering Physician: Doctor Sewell Final Report: HISTORY: Dyspnea, low oxygen saturation. TECHNIQUE: Two views of the chest. COMPARISON: 09/30/2016. FINDINGS: Pacer device with leads terminating within the right atrium and right ventricle. Cardiomegaly as before. New small bilateral pleural effusions. Increased pulmonary interstitial prominence likely indicating interstitial edema. Small area of more focal opacity within the right lower lung zone laterally could relate to an area of atelectasis or small infiltrate. There is no pneumothorax. Prior lumbar spinal instrumentation. IMPRESSION: 1. Findings of CHF with interstitial edema and new small bilateral pleural effusions. 2. Small area of more focal opacity within the right lower lung zone laterally may relate to a small infiltrate or area of atelectasis. Dictated by Joseph Caputo MD @ 02/04/2017 9:50:34 AM Dictated by: Joseph Caputo MD @ 02/04/2017 09:50:40 (Electronic Signature) Report Signed by Proxy. KIA
[2017-02-07] MEDS: Albuterol/Ipratropium 3.0-0.5 MG/3 ML Neb Soln NEB SCH ×2 (05:43→11:19)
[2017-02-07 05:45] LABS: CHLORIDE,CL 105 mmol/L (98-110); SODIUM,NA 141 mmol/L (136-146)
[2017-02-07] MEDS: Furosemide 20 MG Tab PO SCH (09:30)
[2017-02-07] MEDS: Clopidogrel 75 MG Tab PO SCH (09:30)
[2017-02-07] MEDS: Aspirin 81 MG Tab.Chew PO SCH (09:30)
[2017-02-07] MEDS: Fish Oil/Omega-3 Fatty Acids 1 Gm Cap PO SCH (09:30)
[2017-02-07] MEDS: Docusate Sodium 100 MG Cap PO PRN (09:30)
[2017-02-07] MEDS: Enoxaparin 40 MG/0.4 ML Syringe SUBCUT SCH (09:33)
[2017-02-07] MEDS: Carboxymethylcellulose Sodium 0.5% Ophth Soln 0.4 ML UD Box of 30 EYEBOTH SCH (09:34)
[2017-02-07] MEDS: Spironolactone 25 MG Tab PO SCH (09:37)
--- NOTE | 2017-02-07 10:06 | PCM.DCSUM1 ---
Discharge Summary - Hospital Course Free Text/Narrative:: ] 81 yo fm with history of Pulmonary Fibrosis admitted to hospital on 02/04/17 for hypoxia, pneumonia and chf exacerbation. She had no previous history of CHF. At admission she had leukocytosis & CXR done which showed interstitial edema, BL pleural effusions & right side infiltrate vs. atelectatic region. Her BNP was also elevated to 699. She was treated with Lasix, Spironolactone and Levaquin. She improved daily but we were unable to get her off oxygen. Patients resting and sleeping O2 sat was normal but she desaturated with activity. She will be sent home on O2. Patient will also be needing home health. She is homebound secondary to hypoxia and pulmonary fibrosis. She will need PT/OT strengthening with home safety evaluation. The plan of care will be overseen by her PCP Dr. Dobbs. She was discharged on 02/07/17. No changes were made to her medications during hospitalization. SHe was sent home on Oxygen PRN during activity. SHe was also sent home with 3 tabs of Levaquin which she is to take every other day to complete course. - Discharge Data Discharge Date: 02/07/17 Discharge Disposition: Home, W Home Health Agency 06 Condition: Good - Patient Instructions Diet: Usual Diet as Tolerated Activity: As Tolerated Notify Provider of: Fever, Increased Pain, Swelling and Redness, Drainage, Nausea and/or Vomiting - Discharge Plan Prescriptions/Med Rec: Levofloxacin [Levaquin] 750 mg PO ASDIRECTED #3 tablet Home Medications: Home Meds Aspirin 81 mg PO DAILY 06/21/15 [History] Cholecalciferol (Vitamin D3) [Vitamin D3] 2,000 unit PO DAILY 06/21/15 [History] Fish Oil/[place]-3 Fatty Acids [Fish Oil 1,000 MG] 1,000 mg PO DAILY 06/21/15 [ History] Furosemide 40 mg PO BID 06/21/15 [History] Losartan [Cozaar] 100 mg PO DAILY 06/21/15 [History] Lutein 6 mg PO DAILY 06/21/15 [History] Metoprolol Tartrate 50 mg PO BID 06/21/15 [History] Omeprazole 20 mg PO ACBREAKFAST 06/21/15 [History] Simvastatin [Zocor] 20 mg PO BEDTIME 06/21/15 [History] Zinc 50 mg PO DAILY 06/21/15 [History] Albuterol Sulfate [Proair Respiclick] 1 puff INH ASDIRECTED 02/04/17 [History] Clopidogrel [Plavix] 75 mg PO DAILY 02/04/17 [History] Glycerin/Propylene Glycol [Artificial Tears Drops] 1 drop EYEBOTH BID 02/04/17 [ History] Sertraline HCl 100 mg PO DAILY 02/04/17 [History] Sildenafil Citrate [Sildenafil] 20 mg PO TID 02/04/17 [History] Spironolactone [Aldactone] 25 mg PO DAILY 02/04/17 [History] Metolazone [Zaroxolyn] 10 mg PO Q2D@0800 02/06/17 [History] Ondansetron 4 mg PO TID PRN 02/06/17 [History] Potassium Chloride [Klor-Con M20] 20 meq PO BID 02/06/17 [History] Tiotropium [place] [Spiriva Respimat] 5 mcg IH DAILY 02/06/17 [History] amLODIPine Besylate [Amlodipine Besylate] 5 mg PO BID 02/06/17 [History] Levofloxacin [Levaquin] 750 mg PO ASDIRECTED #3 tablet 02/07/17 [Rx] Patient Handouts: Heart Failure, [id number], Community-Acquired Pneumonia, Adult, [id number] Referrals: Slade Dugan MD [Primary Care Provider] - 02/08/17 4:00 pm - Discharge Summary/Plan Comment DC Time >30 min.: No - Patient Data Vitals - Most Recent: Last Vital Signs Temp 36.9 C 02/07/17 08:00 Pulse 70 02/07/17 08:00 Resp 16 02/07/17 08:00 BP 118/73 02/07/17 08:00 Pulse Ox 93 L 02/07/17 08:00 Weight - Most Recent: 76 kg I&O - Last 24 hours: Intake & Output 02/06/17 02/07/17 02/07/17 22:59 06:59 14:59 Intake Total 1040 600 Output Total 1100 1190 Balance -60 -590 Lab Results - Last 24 hrs: Laboratory Results - last 24 hr 02/07/17 02/07/17 Range/Units 04:40 04:43 WBC 11.84 H (4.0-11.0) K/uL RBC 4.06 L (4.30-5.90) M/uL Hgb 11.7 L (12.0-16.0) g/dL Hct 36.9 (36.0-46.0) % MCV 90.9 (80.0-98.0) fL MCH 28.8 (27.0-32.0) pg MCHC 31.7 (31.0-37.0) g/dL RDW Std Deviation 51.4 (28.0-62.0) fl RDW Coeff of German 16 H (11.0-15.0) % Plt Count 252 (150-400) K/uL MPV 9.30 (7.40-12.00) fL Neut % (Auto) 59.4 (48.0-80.0) % Lymph % (Auto) 17.7 (16.0-40.0) % [place] % (Auto) 9.4 (0.0-15.0) % Eos % (Auto) 13.0 H (0.0-7.0) % Baso % (Auto) 0.5 (0.0-1.5) % Neut # (Auto) 7.0 H (1.4-5.7) K/uL Lymph # (Auto) 2.1 (0.6-2.4) K/uL [place] # (Auto) 1.1 H (0.0-0.8) K/uL Eos # (Auto) 1.5 H (0.0-0.7) K/uL Baso # (Auto) 0.1 (0.0-0.1) K/uL Nucleated RBC % 0.0 /100WBC Nucleated RBCs # 0 K/uL Sodium 141 (136-146) mmol/L Potassium 4.0 (3.5-5.1) mmol/L Chloride 105 (98-110) mmol/L Carbon Dioxide 24 (21-31) mmol/L BUN 11 (6.0-23.0) mg/dL Creatinine 0.8 (0.6-1.5) mg/dL Est Cr Clr Drug Dosing 38.94 mL/min Estimated GFR (MDRD) > 60.0 ml/min Glucose 106 (60-110) mg/dL Calcium 8.9 (8.8-10.8) mg/dL Magnesium 1.5 (1.5-2.3) mEq/L Total Bilirubin 1.0 (0.1-1.5) mg/dL AST 31 (5-40) IU/L ALT 35 (8-54) IU/L Alkaline Phosphatase 49 (40-150) Total Protein 6.7 (6.0-8.0) g/dL Albumin 3.7 (3.4-4.8) g/dL Globulin 3.0 (2.0-3.5) g/dL Albumin/Globulin Ratio 1.2 L (1.3-2.8) Med Orders - Current: Current Medications Acetaminophen (Tylenol) 325 mg PO Q4H PRN PRN Reason: Pain (Mild 1-3)/fever Albuterol/Ipratropium (Duoneb 3.0-0.5 Mg/3 Ml) 3 ml NEB Q6H [facility] Last Admin: 02/07/17 05:43 Dose: 3 ml Artificial Tears (Refresh Plus 0.5%) 1 each EYEBOTH BID [facility] Last Admin: 02/07/17 09:34 Dose: 1 drop Aspirin (Aspirin) 81 mg PO DAILY [facility] Last Admin: 02/07/17 09:30 Dose: 81 mg Bisacodyl (Dulcolax) 5 mg PO DAILY PRN PRN Reason: Constipation Clopidogrel Bisulfate (Plavix) 75 mg PO DAILY [facility] Last Admin: 02/07/17 09:30 Dose: 75 mg Docusate Sodium (Colace) 100 mg PO BID PRN PRN Reason: Constipation Last Admin: 02/07/17 09:30 Dose: 100 mg Enoxaparin Sodium (Lovenox) 40 mg SUBCUT DAILY [facility] Last Admin: 02/07/17 09:33 Dose: 40 mg Fish Oil (Fish Oil) 1 gm PO DAILY [facility] Last Admin: 02/07/17 09:30 Dose: 1 gm Furosemide (Lasix) 20 mg PO BID [facility] Last Admin: 02/07/17 09:30 Dose: 20 mg Levofloxacin/Dextrose 750 mg/ (Premix) 150 mls @ 100 mls/hr IV Q48H [facility] Last Admin: 02/06/17 12:38 Dose: 100 mls/hr Lorazepam (Ativan) 0.5 mg PO Q6H PRN PRN Reason: Agitation Last Admin: 02/05/17 20:50 Dose: 0.5 mg Simvastatin (Zocor) 20 mg PO BEDTIME [facility] Sodium Chloride (Saline Flush) 10 ml FLUSH ASDIRECTED PRN PRN Reason: Keep Vein Open Sodium Chloride (Saline Flush) 2.5 ml FLUSH ASDIRECTED PRN PRN Reason: Keep Vein Open Spironolactone (Aldactone) 25 mg PO DAILY [facility] Last Admin: 02/07/17 09:37 Dose: 25 mg Temazepam (Restoril) 15 mg PO BEDTIME PRN PRN Reason: Sleep Last Admin: 02/04/17 22:06 Dose: 15 mg Discontinued Medications Albuterol/Ipratropium (Duoneb 3.0-0.5 Mg/3 Ml) 3 ml NEB ONETIME ONE Stop: 02/04/17 08:39 Last Admin: 02/04/17 08:47 Dose: 3 ml Furosemide (Lasix) 40 mg IVPUSH NOW ONE Stop: 02/04/17 12:01 Last Admin: 02/04/17 12:22 Dose: 40 mg Non-Formulary Medication (Glycerin/Propylene Glycol [Artificial Tears Drops]) 1 drop EYEBOTH BID [facility] Last Admin: 02/06/17 08:18 Dose: Not Given Potassium Chloride (Klor-Con M20) 40 meq PO ONETIME ONE Stop: 02/05/17 11:19 Last Admin: 02/05/17 12:31 Dose: 40 meq Simvastatin (Zocor) 20 mg PO DAILY [facility] Last Admin: 02/06/17 08:17 Dose: 20 mg *Q Meaningful Use (DIS) - VTE *Q VTE Criteria *Q: - Stroke *Q Stroke Criteria *Q: - AMI *Q AMI Criteria *Q:
[2017-02-07] MEDS ORDERED: Metoprolol Tartrate 50 MG Tab PO SCH (10:30)
[2017-02-07 16:40] VITALS: BP 105/65
[2017-02-07] MEDS ORDERED: Simvastatin 20 MG Tab PO SCH (21:00)
--- NOTE | 2017-02-09 12:59 | ECHO ---
EXAM DATE: 02/04/17 PATIENT'S AGE: 81 The echocardiogram report can be seen in this patient's EMR (Electronic Medical Record) in the Reports section. KIA
== END 2017-02-07 16:42 | disposition home health service (06) | DRG 195 ==
LOC: MW.ED 08:29 → UNDOADMIN 09:48 → INTOOBSV 09:48 → MW.MS 09:48 → OBSVTOIN 09:48 → MW.MS 11:26 → UNDODISIN 02-07 16:42
PROVIDERS: ADMIT Family Medicine; ATTEND Family Medicine
DX: J18.9 Pneumonia, unspecified organism (principal); J98.11 Atelectasis; R09.02 Hypoxemia; I49.9 Cardiac arrhythmia, unspecified; I25.10 Atherosclerotic heart disease of native coronary artery without angina pectoris; I11.0 Hypertensive heart disease with heart failure; I50.9 Heart failure, unspecified; Z95.5 Presence of coronary angioplasty implant and graft; Z87.891 Personal history of nicotine dependence; I48.91 Unspecified atrial fibrillation; J44.9 Chronic obstructive pulmonary disease, unspecified; K59.09 Other constipation; F41.9 Anxiety disorder, unspecified; M81.0 Age-related osteoporosis without current pathological fracture; Z79.82 Long term (current) use of aspirin; Z79.899 Other long term (current) drug therapy; Z88.2 Allergy status to sulfonamides; Z88.8 Allergy status to other drugs, medicaments and biological substances; J84.10 Pulmonary fibrosis, unspecified
CPT/HCPCS: 36415; 71020; 71020-26; 80053; 80061; 81001; 82962; 83735; 83880; 84484; 85025; 93005; 93306; 94640; 94664; 99285; 99285-25; A9270-GY; J1650; J1940; J1956

== ENCOUNTER → 2017-02-09 | Outpatient (CLI) | payer MEDICARE, BC | LOC: MW.CHIM 08:00 | PROVIDERS: ATTEND Internal Medicine | DX: I50.9 Heart failure, unspecified (principal); I42.9 Cardiomyopathy, unspecified; E78.5 Hyperlipidemia, unspecified; R73.9 Hyperglycemia, unspecified | CPT/HCPCS: 99204 ==

== ENCOUNTER 2017-03-11 11:22 | Observation (INO) | payer MEDICARE, BC ==
[2017-03-11] MEDS ORDERED: Aspirin 81 MG Tab.Chew PO ONE (11:33)
[2017-03-11] MEDS ORDERED: Alum Hydrox/Mag Hydrox/Simeth 15 ML, Metoclopramide 5 MG, Lidocaine 2% 5 ML PO ONE ×3 (11:33)
[2017-03-11] MEDS ORDERED: Famotidine 20 MG/2 ML SDV IVPUSH ONE (11:33)
[2017-03-11] MEDS ORDERED: Ketorolac 30 MG/ML SDV IVPUSH ONE (11:33)
--- NOTE | 2017-03-11 11:39 | EDM.PDOC ---
ED HPI GENERAL MEDICAL PROBLEM - General Chief Complaint: Cardiovascular Problem Stated Complaint: HEART RATE GOING UP AND DOWN Time Seen by Provider: 03/11/17 11:36 Source of Information: Reports: Patient History Limitations: Reports: No Limitations - History of Present Illness INITIAL COMMENTS - FREE TEXT/NARRATIVE: History of present illness: [81-year-old female presenting with complaints of heart irregularity. Patient indicates she does have a pacemaker but that monitoring her O2 saturation she had noticed that her heart was going faster into the low 100s and then dropping back down which is not consistent with her norm she indicates that her baseline heart rate is in the mid 70s. She denies any symptoms of dizziness, nausea or door vomiting and/or chest pain or pressure she indicated just the heart rate being inconsistent and high on her heart rate monitor concerned her she called her sister who is a nurse who indicated she should come in and be evaluated. Patient also indicates for the last several weeks that she has had intermittent bouts of diarrhea. She'll indicates she'll have a normal stool and then nothing for a couple days and then she will have repeated diarrhea that is difficult to make it to the bathroom in time. She denies taking anything to intervene or change this pattern.] Review of systems: As per history of present illness and below otherwise all systems reviewed and negative. Past medical history: As per history of present illness and as reviewed below otherwise noncontributory. Surgical history: As per history of present illness and as reviewed below otherwise noncontributory. Social history: No reported history of drug or alcohol abuse. Family history: As per history of present illness and as reviewed below otherwise noncontributory. Physical exam: HEENT: Atraumatic, normocephalic, pupils reactive, negative for conjunctival pallor or scleral icterus, mucous membranes moist, throat clear, neck supple, nontender, trachea midline. Lungs: Clear to auscultation, breath sounds equal bilaterally, chest nontender. Heart: S1S2, regular, negative for clicks, rubs, or JVD. Abdomen: Soft, nondistended, nontender. Negative for masses or hepatosplenomegaly. Negative for costovertebral tenderness. Pelvis: Stable nontender. Genitourinary: Deferred. Rectal: Deferred. Extremities: Atraumatic, negative for cords or calf pain. Neurovascular unremarkable. Neuro: Awake, alert, oriented. Cranial nerves II through XII unremarkable. Cerebellum unremarkable. Motor and sensory unremarkable throughout. Exam nonfocal. Clinical assessment is benign save that is stated by the patient in the history of present illness. Patient has no sensation of her heart rate or rhythm changing but it is captured on EKG as well as desk monitor at bedside. Diagnostics: [CBC, CMP, troponin, lipase, amylase] Therapeutics: [Chest x-ray, IV fluid,] Impression: [Irregular heartbeat] Plan: [admit for OBS with telemetry] Definitive disposition and diagnosis as appropriate pending reevaluation and review of above. no pain Pain Score (Numeric/FACES): 0 - Related Data Allergies Allergy/AdvReac Type Severity Reaction Status Date / Time hydrochlorothiazide Allergy Cannot Verified 03/11/17 11:30 Remember Sulfa (Sulfonamide Allergy Cannot Verified 03/11/17 11:30 Antibiotics) Remember Home Meds: Home Meds Aspirin 81 mg PO DAILY 06/21/15 [History] Cholecalciferol (Vitamin D3) [Vitamin D3] 2,000 unit PO DAILY 06/21/15 [History] Fish Oil/[place]-3 Fatty Acids [Fish Oil 1,000 MG] 1,000 mg PO DAILY 06/21/15 [ History] Furosemide 40 mg PO BID 06/21/15 [History] Losartan [Cozaar] 100 mg PO DAILY 06/21/15 [History] Lutein 6 mg PO DAILY 06/21/15 [History] Metoprolol Tartrate 50 mg PO BID 06/21/15 [History] Omeprazole 20 mg PO ACBREAKFAST 06/21/15 [History] Simvastatin [Zocor] 20 mg PO BEDTIME 06/21/15 [History] Zinc 50 mg PO DAILY 06/21/15 [History] Albuterol Sulfate [Proair Respiclick] 1 puff INH ASDIRECTED 02/04/17 [History] Clopidogrel [Plavix] 75 mg PO DAILY 02/04/17 [History] Glycerin/Propylene Glycol [Artificial Tears Drops] 1 drop EYEBOTH BID 02/04/17 [ History] Sertraline HCl 100 mg PO DAILY 02/04/17 [History] Sildenafil Citrate [Sildenafil] 20 mg PO TID 02/04/17 [History] Spironolactone [Aldactone] 25 mg PO DAILY 02/04/17 [History] Metolazone [Zaroxolyn] 10 mg PO Q2D@0800 02/06/17 [History] Ondansetron 4 mg PO TID PRN 02/06/17 [History] Potassium Chloride [Klor-Con M20] 20 meq PO BID 02/06/17 [History] Tiotropium [place] [Spiriva Respimat] 5 mcg IH DAILY 02/06/17 [History] amLODIPine Besylate [Amlodipine Besylate] 5 mg PO BID 02/06/17 [History] Levofloxacin [Levaquin] 750 mg PO ASDIRECTED #3 tablet 02/07/17 [Rx] Past Medical History HEENT History: Reports: Other (See Below) Other HEENT History: detatch retina right eye Cardiovascular History: Reports: Afib, CAD, Hypertension, AR, Stents Respiratory History: Reports: COPD, Other (See Below) Other Respiratory History: Pulmonary HTN Gastrointestinal History: Reports: Chronic Constipation, Hemorrhoids. Denies: Cirrhosis Genitourinary History: Reports: UTI, Recurrent. Denies: Chronic Renal Insuffiency MANAGER DISH History: Reports: Musculoskeletal History: Reports: Other (See Below) Other Musculoskeletal History: carpal tunnel syndrome. back surgery , fussion (L ,3,4,5) Neurological History: Reports: None. Denies: Alzheimers Disease, CVA, MS, Seizure Psychiatric History: Reports: Anxiety Endocrine/Metabolic History: Reports: Osteoporosis. 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 in the past) - Infectious Disease History Infectious Disease History: Reports: Chicken Pox - Past Surgical History Head Surgeries/Procedures: Reports: None HEENT Surgical History: Reports: Eye Surgery Cardiovascular Surgical History: Reports: Carotid Stents, Pacer Respiratory Surgical History: Reports: None GI Surgical History: Reports: Appendectomy Female Surgical History: Reports: Hysterectomy, Other (See Below) Other Female Surgeries/Procedures: Bladder repair Endocrine Surgical History: Reports: None Neurological Surgical History: Reports: None Musculoskeletal Surgical History: Reports: Other (See Below) Other Musculoskeletal Surgeries/Procedures:: torn achilles tendon repair, carpal tunnel Dermatological Surgical History: Reports: None Social & Family History - Family History Family Medical History: Noncontributory HEENT: Reports: Glaucoma, Macular Degeneration Cardiac: Reports: AR GI: Reports: None Neurological: Reports: CVA Oncologic: Reports: Breast, Skin, Uterine - Tobacco Use Smoking Status *Q: Former Smoker Years of Tobacco use: 20 Used Tobacco, but Quit: Yes Month Tobacco Last Used: 09/1959 Second Hand Smoke Exposure: No - Caffeine Use Caffeine Use: Reports: None - Recreational Drug Use Recreational Drug Use: No ED ROS GENERAL - Review of Systems Review Of Systems: See Below (History of present illness) ED EXAM, GENERAL - Physical Exam Exam: See Below (See history of present illness) Course - Vital Signs Last Recorded V/S: Last Vital Signs Temp 36.1 C 03/11/17 11:30 Pulse 70 03/11/17 13:21 Resp 18 03/11/17 13:21 BP 108/42 L 03/11/17 13:21 Pulse Ox 95 03/11/17 13:21 - Orders/Labs/Meds Orders: Active Orders 24 hr Category Date Time Status Antiembolic Devices [RC] PER UNIT ROUTINE Care 03/11/17 13:58 Active Cardiac Monitoring [RC] . DIRECTED Care 03/11/17 11:33 Active EKG Documentation Completion [RC] STAT Care 03/11/17 11:34 Active Intake and Output [RC] QSHIFT Care 03/11/17 13:57 Active Oxygen Therapy [RC] PRN Care 03/11/17 13:57 Active Up ad Andreia [RC] ASDIRECTED Care 03/11/17 13:57 Active VTE/DVT Education [RC] PER UNIT ROUTINE Care 03/11/17 13:57 Active Vital Signs [RC] Q4H Care 03/11/17 13:57 Active 2 Gram Sodium Diet [DIET] Diet 03/11/17 Breakfast Active Chest 1V Frontal [CR] Stat Exams 03/11/17 11:33 Taken Sodium Chloride 0.9% [Normal Saline] 1,000 ml Med 03/11/17 13:14 Active IV .Bolus Saline Lock Insert [OM.PC] Stat Oth 03/11/17 11:33 Ordered Sequential Compression Device [OM.PC] Per Unit Routine Oth 03/11/17 13:57 Ordered Resuscitation Status Routine Resus Stat 03/11/17 13:57 Ordered Medication Orders Sodium Chloride (Normal Saline) 1,000 mls @ 999 mls/hr IV .Bolus ONE Stop: 03/11/17 14:14 Labs: Laboratory Tests 03/11/17 03/11/17 03/11/17 Range/Units 11:40 11:40 11:40 WBC 8.93 (4.0-11.0) K/uL RBC 4.60 (4.30-5.90) M/uL Hgb 13.4 (12.0-16.0) g/dL Hct 40.7 (36.0-46.0) % MCV 88.5 (80.0-98.0) fL MCH 29.1 (27.0-32.0) pg MCHC 32.9 (31.0-37.0) g/dL RDW Std Deviation 52.1 (28.0-62.0) fl RDW Coeff of [place] 16 H (11.0-15.0) % Plt Count 249 (150-400) K/uL MPV 9.40 (7.40-12.00) fL Add Manual Diff YES Neutrophils % (Manual) 56 (48.0-80.0) % Lymphocytes % (Manual) 26 (16.0-40.0) % Monocytes % (Manual) 8 (0.0-15.0) % Eosinophils % (Manual) 9 H (0.0-7.0) % Basophils % (Manual) 1 (0.0-1.5) % Nucleated RBC % 0.7 /100WBC Absolute Seg Neuts 5.0 Lymphocytes # (Manual) 2.3 Monocytes # (Manual) 0.7 Eosinophils # (Manual) 0.8 Basophils # (Manual) 0 Nucleated RBCs # 0 K/uL INR 1.11 (0.86-1.11) Sodium 138 (136-146) mmol/L Potassium 3.8 (3.5-5.1) mmol/L Chloride 105 (98-110) mmol/L Carbon Dioxide 21 (21-31) mmol/L BUN 16 (6.0-23.0) mg/dL Creatinine 0.9 (0.6-1.5) mg/dL Est Cr Clr Drug Dosing 34.62 mL/min Estimated GFR (MDRD) 59.9 ml/min Glucose 110 (60-110) mg/dL Calcium 9.2 (8.8-10.8) mg/dL Total Bilirubin 0.8 (0.1-1.5) mg/dL AST 27 (5-40) IU/L ALT 18 (8-54) IU/L Alkaline Phosphatase 66 (40-150) Troponin I (0.0-0.29) NG/ML Total Protein 7.5 (6.0-8.0) g/dL Albumin 4.1 (3.4-4.8) g/dL Globulin 3.4 (2.0-3.5) g/dL Albumin/Globulin Ratio 1.2 L (1.3-2.8) Amylase 68 (10-90) U/L Lipase 73 (7-80) U/L Urine Color Urine Appearance Urine pH (5.0-8.0) Ur Specific [place] (1.001-1.035) Urine Protein (NEGATIVE) mg/dL Urine Glucose (UA) (NEGATIVE) mg/dL Urine Ketones (NEGATIVE) mg/dL Urine Occult Blood (NEGATIVE) Urine Nitrite (NEGATIVE) Urine Bilirubin (NEGATIVE) Urine Urobilinogen (<2.0) EU/dL Ur Leukocyte Esterase (NEGATIVE) Urine RBC (0-2/HPF) Urine WBC (0-5/HPF) Ur Epithelial Cells (NONE-FEW) Urine Bacteria (NEGATIVE) 03/11/17 03/11/17 Range/Units 11:40 11:55 WBC (4.0-11.0) K/uL RBC (4.30-5.90) M/uL Hgb (12.0-16.0) g/dL Hct (36.0-46.0) % MCV (80.0-98.0) fL MCH (27.0-32.0) pg MCHC (31.0-37.0) g/dL RDW Std Deviation (28.0-62.0) fl RDW Coeff of [place] (11.0-15.0) % Plt Count (150-400) K/uL MPV (7.40-12.00) fL Add Manual Diff Neutrophils % (Manual) (48.0-80.0) % Lymphocytes % (Manual) (16.0-40.0) % Monocytes % (Manual) (0.0-15.0) % Eosinophils % (Manual) (0.0-7.0) % Basophils % (Manual) (0.0-1.5) % Nucleated RBC % /100WBC Absolute Seg Neuts Lymphocytes # (Manual) Monocytes # (Manual) Eosinophils # (Manual) Basophils # (Manual) Nucleated RBCs # K/uL INR (0.86-1.11) Sodium (136-146) mmol/L Potassium (3.5-5.1) mmol/L Chloride (98-110) mmol/L Carbon Dioxide (21-31) mmol/L BUN (6.0-23.0) mg/dL Creatinine (0.6-1.5) mg/dL Est Cr Clr Drug Dosing mL/min Estimated GFR (MDRD) ml/min Glucose (60-110) mg/dL Calcium (8.8-10.8) mg/dL Total Bilirubin (0.1-1.5) mg/dL AST (5-40) IU/L ALT (8-54) IU/L Alkaline Phosphatase (40-150) Troponin I < 0.10 (0.0-0.29) NG/ML Total Protein (6.0-8.0) g/dL Albumin (3.4-4.8) g/dL Globulin (2.0-3.5) g/dL Albumin/Globulin Ratio (1.3-2.8) Amylase (10-90) U/L Lipase (7-80) U/L Urine Color YELLOW Urine Appearance CLEAR Urine pH 6.0 (5.0-8.0) Ur Specific [place] <= 1.005 (1.001-1.035) Urine Protein NEGATIVE (NEGATIVE) mg/dL Urine Glucose (UA) NEGATIVE (NEGATIVE) mg/dL Urine Ketones NEGATIVE (NEGATIVE) mg/dL Urine Occult Blood TRACE-LYSED (NEGATIVE) Urine Nitrite NEGATIVE (NEGATIVE) Urine Bilirubin NEGATIVE (NEGATIVE) Urine Urobilinogen 0.2 (<2.0) EU/dL Ur Leukocyte Esterase NEGATIVE (NEGATIVE) Urine RBC 2-4 (0-2/HPF) Urine WBC 02 (0-5/HPF) Ur Epithelial Cells FEW (NONE-FEW) Urine Bacteria FEW (NEGATIVE) Meds: Medications Generic Name Dose Route Start Last Admin Trade Name Freq PRN Reason Stop Dose Admin Sodium Chloride 1,000 mls @ 999 mls/hr 03/11/17 13:14 Normal Saline IV 03/11/17 14:14 .Bolus ONE Discontinued Medications Generic Name Dose Route Start Last Admin Trade Name Iliana PRN Reason Stop Dose Admin Aspirin 324 mg 03/11/17 11:33 03/11/17 12:02 Aspirin PO 03/11/17 11:34 243 mg ONETIME ONE Administration Al Hydroxide/Mg Hydroxide 15 0 ml 03/11/17 11:33 ml/ Metoclopramide HCl 5 mg/ PO 03/11/17 11:34 Lidocaine HCl 5 ml ONETIME ONE Famotidine 20 mg 03/11/17 11:33 03/11/17 12:02 Pepcid IVPUSH 03/11/17 11:34 20 mg ONETIME ONE Administration Ketorolac Tromethamine 30 mg 03/11/17 11:33 Toradol IVPUSH 03/11/17 11:34 ONETIME ONE Departure - Departure Time of Disposition: 13:27 Disposition: Refer to Observation Condition: Good Clinical Impression: Irregular heartbeat Referrals: Slade Dugan MD [Primary Care Provider] - Forms: ED Department Discharge - My Orders Last 24 Hours: My Active Orders 03/11/17 11:33 Cardiac Monitoring [RC] . DIRECTED Chest 1V Frontal [CR] Stat Saline Lock Insert [OM.PC] Stat 03/11/17 11:34 EKG Documentation Completion [RC] STAT 03/11/17 13:14 Sodium Chloride 0.9% [Normal Saline] 1,000 ml IV .Bolus - Assessment/Plan Last 24 Hours: My Active Orders 03/11/17 11:33 Cardiac Monitoring [RC] . DIRECTED Chest 1V Frontal [CR] Stat Saline Lock Insert [OM.PC] Stat 03/11/17 11:34 EKG Documentation Completion [RC] STAT 03/11/17 13:14 Sodium Chloride 0.9% [Normal Saline] 1,000 ml IV .Bolus
[2017-03-11] MEDS ORDERED: Sodium Chloride 0.9% 1,000 ML IV ONE (13:14)
--- NOTE | 2017-03-11 14:03 | PCM.HP ---
H&P History of Present Illness - History of Present Illness Initial Comments - Free Text/Narative: 81 yo female with pmh of pulmonary hypertension and atrial fibrillation who presents to the ED with a complaint of tachycardia. She was asymptomatic but notice her heart rate was elevated when she checked it on pulse oximeter at home. In the ED she was noted to have a heart rate of 100-120s. EKG reports HR 100 that appears to be wide complex SVT. She was given a liter of fluid and HR improved to the 70s. ED provider recommended observation. no pain Pain Score (Numeric/FACES): 0 - Related Data Allergies/Adverse Reactions: Allergies Allergy/AdvReac Type Severity Reaction Status Date / Time hydrochlorothiazide Allergy Cannot Verified 03/11/17 11:30 Remember Sulfa (Sulfonamide Allergy Cannot Verified 03/11/17 11:30 Antibiotics) Remember Home Medications: Home Meds Furosemide 20 mg PO BID 06/21/15 [History] Losartan [Cozaar] 25 mg PO DAILY 06/21/15 [History] Metoprolol Tartrate 50 mg PO BID 06/21/15 [History] Omeprazole 20 mg PO ACBREAKFAST 06/21/15 [History] Simvastatin [Zocor] 20 mg PO BEDTIME 06/21/15 [History] Clopidogrel [Plavix] 75 mg PO DAILY 02/04/17 [History] Sertraline HCl 100 mg PO DAILY 02/04/17 [History] Spironolactone [Aldactone] 25 mg PO DAILY 02/04/17 [History] Metolazone [Zaroxolyn] 10 mg PO Q2D@0800 02/06/17 [History] Ondansetron 4 mg PO TID PRN 02/06/17 [History] Potassium Chloride [Klor-Con M20] 20 meq PO BID 02/06/17 [History] Tiotropium [place] [Spiriva Respimat] 5 mcg IH DAILY 02/06/17 [History] Albuterol Sulfate [Proair Hfa] 2 puff IH QID PRN 03/11/17 [History] Aspirin 81 mg PO BRK 03/11/17 [History] Cholecalciferol (Vitamin D3) [D3-2000] 2,000 unit PO DAILY 03/11/17 [History] Cyanocobalamin (Vitamin B-12) [Vitamin B-12] 1,000 mcg PO DAILY 03/11/17 [ History] Fish Oil/[place]-3 Fatty Acids [Fish Oil 1,000 MG] 1 gm PO DAILY 03/11/17 [History ] L.acidoph,Paracasei, B.lactis [Probiotic] 1 each PO DAILY 03/11/17 [History] Lutein 6 mg PO DAILY 03/11/17 [History] Zinc 50 mg PO DAILY 03/11/17 [History] Past Medical History HEENT History: Reports: Other (See Below) Other HEENT History: detatch retina right eye Cardiovascular History: Reports: Afib, CAD, Hypertension, CA, Stents Respiratory History: Reports: COPD, Other (See Below) Other Respiratory History: Pulmonary HTN Gastrointestinal History: Reports: Chronic Constipation, Hemorrhoids. Denies: Cirrhosis Genitourinary History: Reports: UTI, Recurrent. Denies: Chronic Renal Insuffiency ECONOMIC GEOGRAPHER History: Reports: Musculoskeletal History: Reports: Other (See Below) Other Musculoskeletal History: carpal tunnel syndrome. back surgery , fussion (L ,3,4,5) Neurological History: Reports: None. Denies: Alzheimers Disease, CVA, MS, Seizure Psychiatric History: Reports: Anxiety Endocrine/Metabolic History: Reports: Osteoporosis. 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 in the past) - Infectious Disease History Infectious Disease History: Reports: Chicken Pox - Past Surgical History Head Surgeries/Procedures: Reports: None HEENT Surgical History: Reports: Eye Surgery Cardiovascular Surgical History: Reports: Carotid Stents, Pacer Respiratory Surgical History: Reports: None GI Surgical History: Reports: Appendectomy Female Surgical History: Reports: Hysterectomy, Other (See Below) Other Female Surgeries/Procedures: Bladder repair Endocrine Surgical History: Reports: None Neurological Surgical History: Reports: None Musculoskeletal Surgical History: Reports: Other (See Below) Other Musculoskeletal Surgeries/Procedures:: torn achilles tendon repair, carpal tunnel Dermatological Surgical History: Reports: None Social & Family History - Family History Family Medical History: Noncontributory HEENT: Reports: Glaucoma, Macular Degeneration Cardiac: Reports: CA GI: Reports: None Neurological: Reports: CVA Oncologic: Reports: Breast, Skin, Uterine - Tobacco Use Smoking Status *Q: Former Smoker Years of Tobacco use: 20 Used Tobacco, but Quit: Yes Month Tobacco Last Used: 09/1959 Second Hand Smoke Exposure: No - Caffeine Use Caffeine Use: Reports: None - Recreational Drug Use Recreational Drug Use: No H&P Review of Systems - Review of Systems: Review Of Systems: ROS reveals no pertinent complaints other than HPI. General: Reports: No Symptoms HEENT: Reports: No Symptoms Pulmonary: Reports: No Symptoms Cardiovascular: Reports: No Symptoms Gastrointestinal: Reports: No Symptoms Genitourinary: Reports: No Symptoms Musculoskeletal: Reports: No Symptoms Skin: Reports: No Symptoms Psychiatric: Reports: No Symptoms Neurological: Reports: No Symptoms Hematologic/Lymphatic: Reports: No Symptoms Immunologic: Reports: No Symptoms Exam - Exam Exam: See Below - Vital Signs Vital Signs: Last Vital Signs Temp 36.1 C 03/11/17 11:30 Pulse 70 03/11/17 13:21 Resp 18 03/11/17 13:21 BP 108/42 L 03/11/17 13:21 Pulse Ox 95 03/11/17 13:21 Weight: 68.946 kg - Exam General: Alert, Oriented, 4 Lungs: Clear to Auscultation, Normal Respiratory Effort Cardiovascular: Regular Rate, Regular Rhythm Extremities: Edema (mild pedal) Skin: Warm, Dry, Intact Neurological: No: Focal Deficit - Patient Data Lab Results Last 24 hrs: Laboratory Results - last 24 hr 03/11/17 03/11/17 03/11/17 Range/Units 11:40 11:40 11:40 WBC 8.93 (4.0-11.0) K/uL RBC 4.60 (4.30-5.90) M/uL Hgb 13.4 (12.0-16.0) g/dL Hct 40.7 (36.0-46.0) % MCV 88.5 (80.0-98.0) fL MCH 29.1 (27.0-32.0) pg MCHC 32.9 (31.0-37.0) g/dL RDW Std Deviation 52.1 (28.0-62.0) fl RDW Coeff of German 16 H (11.0-15.0) % Plt Count 249 (150-400) K/uL MPV 9.40 (7.40-12.00) fL Add Manual Diff YES Neutrophils % (Manual) 56 (48.0-80.0) % Lymphocytes % (Manual) 26 (16.0-40.0) % Monocytes % (Manual) 8 (0.0-15.0) % Eosinophils % (Manual) 9 H (0.0-7.0) % Basophils % (Manual) 1 (0.0-1.5) % Nucleated RBC % 0.7 /100WBC Absolute Seg Neuts 5.0 Lymphocytes # (Manual) 2.3 Monocytes # (Manual) 0.7 Eosinophils # (Manual) 0.8 Basophils # (Manual) 0 Nucleated RBCs # 0 K/uL INR 1.11 (0.86-1.11) Sodium 138 (136-146) mmol/L Potassium 3.8 (3.5-5.1) mmol/L Chloride 105 (98-110) mmol/L Carbon Dioxide 21 (21-31) mmol/L BUN 16 (6.0-23.0) mg/dL Creatinine 0.9 (0.6-1.5) mg/dL Est Cr Clr Drug Dosing 34.62 mL/min Estimated GFR (MDRD) 59.9 ml/min Glucose 110 (60-110) mg/dL Calcium 9.2 (8.8-10.8) mg/dL Total Bilirubin 0.8 (0.1-1.5) mg/dL AST 27 (5-40) IU/L ALT 18 (8-54) IU/L Alkaline Phosphatase 66 (40-150) Troponin I (0.0-0.29) NG/ML Total Protein 7.5 (6.0-8.0) g/dL Albumin 4.1 (3.4-4.8) g/dL Globulin 3.4 (2.0-3.5) g/dL Albumin/Globulin Ratio 1.2 L (1.3-2.8) Amylase 68 (10-90) U/L Lipase 73 (7-80) U/L Urine Color Urine Appearance Urine pH (5.0-8.0) Ur Specific [place] (1.001-1.035) Urine Protein (NEGATIVE) mg/dL Urine Glucose (UA) (NEGATIVE) mg/dL Urine Ketones (NEGATIVE) mg/dL Urine Occult Blood (NEGATIVE) Urine Nitrite (NEGATIVE) Urine Bilirubin (NEGATIVE) Urine Urobilinogen (<2.0) EU/dL Ur Leukocyte Esterase (NEGATIVE) Urine RBC (0-2/HPF) Urine WBC (0-5/HPF) Ur Epithelial Cells (NONE-FEW) Urine Bacteria (NEGATIVE) 03/11/17 03/11/17 Range/Units 11:40 11:55 WBC (4.0-11.0) K/uL RBC (4.30-5.90) M/uL Hgb (12.0-16.0) g/dL Hct (36.0-46.0) % MCV (80.0-98.0) fL MCH (27.0-32.0) pg MCHC (31.0-37.0) g/dL RDW Std Deviation (28.0-62.0) fl RDW Coeff of German (11.0-15.0) % Plt Count (150-400) K/uL MPV (7.40-12.00) fL Add Manual Diff Neutrophils % (Manual) (48.0-80.0) % Lymphocytes % (Manual) (16.0-40.0) % Monocytes % (Manual) (0.0-15.0) % Eosinophils % (Manual) (0.0-7.0) % Basophils % (Manual) (0.0-1.5) % Nucleated RBC % /100WBC Absolute Seg Neuts Lymphocytes # (Manual) Monocytes # (Manual) Eosinophils # (Manual) Basophils # (Manual) Nucleated RBCs # K/uL INR (0.86-1.11) Sodium (136-146) mmol/L Potassium (3.5-5.1) mmol/L Chloride (98-110) mmol/L Carbon Dioxide (21-31) mmol/L BUN (6.0-23.0) mg/dL Creatinine (0.6-1.5) mg/dL Est Cr Clr Drug Dosing mL/min Estimated GFR (MDRD) ml/min Glucose (60-110) mg/dL Calcium (8.8-10.8) mg/dL Total Bilirubin (0.1-1.5) mg/dL AST (5-40) IU/L ALT (8-54) IU/L Alkaline Phosphatase (40-150) Troponin I < 0.10 (0.0-0.29) NG/ML Total Protein (6.0-8.0) g/dL Albumin (3.4-4.8) g/dL Globulin (2.0-3.5) g/dL Albumin/Globulin Ratio (1.3-2.8) Amylase (10-90) U/L Lipase (7-80) U/L Urine Color YELLOW Urine Appearance CLEAR Urine pH 6.0 (5.0-8.0) Ur Specific [place] <= 1.005 (1.001-1.035) Urine Protein NEGATIVE (NEGATIVE) mg/dL Urine Glucose (UA) NEGATIVE (NEGATIVE) mg/dL Urine Ketones NEGATIVE (NEGATIVE) mg/dL Urine Occult Blood TRACE-LYSED (NEGATIVE) Urine Nitrite NEGATIVE (NEGATIVE) Urine Bilirubin NEGATIVE (NEGATIVE) Urine Urobilinogen 0.2 (<2.0) EU/dL Ur Leukocyte Esterase NEGATIVE (NEGATIVE) Urine RBC 2-4 (0-2/HPF) Urine WBC 02 (0-5/HPF) Ur Epithelial Cells FEW (NONE-FEW) Urine Bacteria FEW (NEGATIVE) Result Diagrams: 03/11/17 11:40 03/11/17 11:40 *Q Meaningful Use (ADM) - VTE *Q VTE Criteria *Q: - Stroke *Q Stroke Criteria *Q: - AMI *Q AMI Criteria *Q: Problem List Initiated/Reviewed/Updated: Yes Orders Last 24hrs: Active Orders 24 hr Category Date Time Status Antiembolic Devices [RC] PER UNIT ROUTINE Care 03/11/17 13:58 Ordered Cardiac Monitoring [RC] . DIRECTED Care 03/11/17 11:33 Active EKG Documentation Completion [RC] STAT Care 03/11/17 11:34 Active Intake and Output [RC] QSHIFT Care 03/11/17 13:57 Ordered Oxygen Therapy [RC] PRN Care 03/11/17 13:57 Ordered Up ad Andreia [RC] ASDIRECTED Care 03/11/17 13:57 Ordered VTE/DVT Education [RC] PER UNIT ROUTINE Care 03/11/17 13:57 Ordered Vital Signs [RC] Q4H Care 03/11/17 13:57 Ordered 2 Gram Sodium Diet [DIET] Diet 03/11/17 Breakfast Ordered Chest 1V Frontal [CR] Stat Exams 03/11/17 11:33 Taken Sodium Chloride 0.9% [Normal Saline] 1,000 ml Med 03/11/17 13:14 Active IV .Bolus Saline Lock Insert [OM.PC] Stat Oth 03/11/17 11:33 Ordered Sequential Compression Device [OM.PC] Per Unit Routine Oth 03/11/17 13:57 Ordered Resuscitation Status Routine Resus Stat 03/11/17 13:57 Ordered Medication Orders Sodium Chloride (Normal Saline) 1,000 mls @ 999 mls/hr IV .Bolus ONE Stop: 03/11/17 14:14 Assessment/Plan Comment:: 81 yo female who presented with asymptomatic tachycardia, likely sinus who improved with IV fluids. Patient may have been dehydrate. She was monitor overnight on Telemetry with heart rate in 70s bpm. She is being discharged this morning. Patient reports she has an appointment with Dr. Wu tomorrow.
[2017-03-11] MEDS ORDERED: Albuterol 6.7 GM Inhaler INH PRN (17:13)
[2017-03-11] MEDS ORDERED: Ondansetron 4 MG Tab PO PRN (17:13)
[2017-03-11] MEDS ORDERED: amLODIPine 5 MG Tab PO SCH (21:00)
[2017-03-11] MEDS ORDERED: Simvastatin 20 MG Tab PO SCH (21:00)
[2017-03-11] MEDS: Potassium Chloride 20 MEQ Tab.ER PO SCH (21:21)
[2017-03-11] MEDS: Metoprolol Tartrate 50 MG Tab PO SCH (21:21)
[2017-03-12] MEDS ORDERED: Omeprazole 20 MG Cap.CR PO SCH (07:30)
[2017-03-12] MEDS ORDERED: Furosemide 20 MG Tab PO SCH (08:00)
[2017-03-12 08:18] VITALS: BP 118/63
[2017-03-12] MEDS ORDERED: TIOTROPIUM BROMIDE 5 MCG INH SCH (09:00)
[2017-03-12] MEDS ORDERED: LUTEIN 6 MG PO SCH (09:00)
[2017-03-12] MEDS ORDERED: Losartan 50 MG Tab PO SCH (09:00)
[2017-03-12] MEDS ORDERED: Fish Oil/Omega-3 Fatty Acids 1 Gm Cap PO SCH (09:00)
[2017-03-12] MEDS ORDERED: Sertraline 100 MG Tab PO SCH (09:00)
[2017-03-12] MEDS ORDERED: Acidophilus with Citrus Pectin Tab PO SCH (09:00)
[2017-03-12] MEDS ORDERED: ZINC 50 MG PO SCH (09:00)
[2017-03-12] MEDS ORDERED: Aspirin 81 MG Tab.Chew PO SCH (09:00)
[2017-03-12] MEDS ORDERED: Clopidogrel 75 MG Tab PO SCH (09:00)
[2017-03-12] MEDS ORDERED: Cyanocobalamin (Vitamin B12) 500 MCG Tab PO SCH (09:00)
[2017-03-12] MEDS ORDERED: Spironolactone 25 MG Tab PO SCH (09:00)
[2017-03-12] MEDS ORDERED: Cholecalciferol (Vitamin D3) 1,000 Unit Tab PO SCH (09:00)
[2017-03-12] MEDS: Potassium Chloride 20 MEQ Tab.ER PO SCH (09:08)
[2017-03-12] MEDS: Metoprolol Tartrate 50 MG Tab PO SCH (09:08)
[2017-03-13] MEDS ORDERED: Metolazone 5 MG Tab PO SCH (08:00)
--- NOTE | 2017-03-13 11:44 | CR ---
EXAM DATE: 03/11/17 PATIENT'S AGE: 81 Patient: PASCUAL CHAVIRA Facility: [place], [place] Site . Site : [id number] Study: XRay Chest [id number] 12:03:06 PM Ordering Physician: Doctor Sewell Final Report: INDICATION: Heart irregularity. Technique: Chest single view. Comparison: 02/04/2017. IMPRESSION: Interval resolution of interstitial edema pattern and effusions. Stable cardiomegaly. Decreased congestion of the pulmonary vessels. Stable position of dual lead cardiac pacemaker. No consolidation or pneumothorax. Dictated by Carrillo Nolen MD @ Mar 11 2017 12:07PM (Electronic Signature) Report Signed by Proxy. KIA
== END 2017-03-12 10:38 | disposition home or self-care (01) ==
LOC: MW.ED 11:22 → MW.MS 14:07
PROVIDERS: ADMIT Internal Medicine; ATTEND Internal Medicine
DX: R00.0 Tachycardia, unspecified (principal); I48.91 Unspecified atrial fibrillation; I25.10 Atherosclerotic heart disease of native coronary artery without angina pectoris; I10 Essential (primary) hypertension; I25.2 Old myocardial infarction; J44.9 Chronic obstructive pulmonary disease, unspecified; I27.2 Other secondary pulmonary hypertension; K59.09 Other constipation; F41.9 Anxiety disorder, unspecified; M81.0 Age-related osteoporosis without current pathological fracture; Z87.440 Personal history of urinary (tract) infections; Z85.72 Personal history of non-Hodgkin lymphomas; Z87.891 Personal history of nicotine dependence; Z82.49 Family history of ischemic heart disease and other diseases of the circulatory system; Z82.3 Family history of stroke; Z88.2 Allergy status to sulfonamides; Z88.8 Allergy status to other drugs, medicaments and biological substances; Z79.02 Long term (current) use of antithrombotics/antiplatelets; Z79.82 Long term (current) use of aspirin; Z79.899 Other long term (current) drug therapy; Z95.0 Presence of cardiac pacemaker; Z90.49 Acquired absence of other specified parts of digestive tract; Z90.710 Acquired absence of both cervix and uterus; Z98.890 Other specified postprocedural states
CPT/HCPCS: 36415; 71010; 80053; 81001; 82150; 83690; 84484; 85025; 85610; 93005; 96361; 96374; 99285; A9270; G0378; J7040; 99284

== ENCOUNTER 2017-08-31 15:31 | Emergency (ER) | payer MEDICARE, BC ==
--- NOTE | 2017-08-31 16:10 | EDM.PDOC ---
ED HPI GENERAL MEDICAL PROBLEM - General Chief Complaint: General Stated Complaint: FALL Time Seen by Provider: 08/31/17 16:07 Source of Information: Reports: Patient History Limitations: Reports: No Limitations - History of Present Illness INITIAL COMMENTS - FREE TEXT/NARRATIVE: HISTORY AND PHYSICAL: []82-year-old female presenting with injury from last night History of Present Illness: []Patient tripped on the rug at home and fell into the refrigerator door, when she awakened today she noticed that her face was continuing to swell above the right eye As having macular degeneration detached retina to the right eye and states that she cannot see out of that eye States that she is on Coumadin, her last check up was one week ago with a PT/ INR of 2.3 Review of Systems: As per history of present illness and below otherwise all systems reviewed and negative. Past medical history: As per history of present illness and as reviewed below otherwise noncontributory. Surgical history: As per history of present illness and as reviewed below otherwise noncontributory. Social history: No reported history of drug or alcohol abuse. Family history: As per history of present illness and as reviewed below otherwise noncontributory. Physical exam: Alert and oriented female who is walked into the emergency department with a cane answering questions appropriately with full sentences and no shortness of breath HEENT: 2+ ecchymosis above her right eye, normocehpalic, pupils reactive, negative for conjunctival pallor or scleral icterus, mucous membranes moist, throat clear, neck supple, nontender, trachea midline. Mild abrasions noted to her right forehead. PERRLA Lungs: Clear to auscultation, breath sounds equal bilaterally, chest non tender. Heart: S1S2, regular, negative for clicks, rubs, or JVD. Abdomen: Soft, nondistended, nontender. Negative for masses or hepatossplenmegaly. Negative for costovertebral tenderness. Pelvis: Stable nontender. Genitourinary: Deferred. Rectal: Deferred Extremities: Atraumatic, negative for cords or calf pain. Neurovascular unremarkable. Neuro: Awake, alert, oriented. Cranial nerves II through XII unremarkable. Cerebellum unremarkable. Motor and sensory unremarkable throughout. Exam nonfocal. Diagnostics: [Head CT scan] Therapeutics: [] Impression: [Minor head injury no intracranial bleed Soft tissue hematoma right eyebrow] Plan: Discharge to home follow up with your PCP] Definitive disposition and diagnosis as appropriate pending reevaluation and review of above. Onset: Sudden Duration: Day(s): (1) Location: Reports: Head, Face Quality: Reports: Ache Severity: Mild Improves with: Reports: None Worsens with: Reports: None Associated Symptoms: Reports: No Other Symptoms - Related Data Allergies Allergy/AdvReac Type Severity Reaction Status Date / Time hydrochlorothiazide Allergy Cannot Verified 08/31/17 15:39 Remember Sulfa (Sulfonamide Allergy Cannot Verified 08/31/17 15:39 Antibiotics) Remember Home Meds: Home Meds Furosemide 20 mg PO BID 06/21/15 [History] Losartan [Cozaar] 25 mg PO DAILY 06/21/15 [History] Metoprolol Tartrate 50 mg PO BID 06/21/15 [History] Omeprazole 20 mg PO ACBREAKFAST 06/21/15 [History] Simvastatin [Zocor] 20 mg PO BEDTIME 06/21/15 [History] Clopidogrel [Plavix] 75 mg PO DAILY 02/04/17 [History] Sertraline HCl 100 mg PO DAILY 02/04/17 [History] Spironolactone [Aldactone] 25 mg PO DAILY 02/04/17 [History] Metolazone [Zaroxolyn] 10 mg PO Q2D@0800 02/06/17 [History] Ondansetron 4 mg PO TID PRN 02/06/17 [History] Potassium Chloride [Klor-Con M20] 20 meq PO BID 02/06/17 [History] Tiotropium [place] [Spiriva Respimat] 5 mcg IH DAILY 02/06/17 [History] Albuterol Sulfate [Proair Hfa] 2 puff IH QID PRN 03/11/17 [History] Aspirin 81 mg PO BRK 03/11/17 [History] Cholecalciferol (Vitamin D3) [D3-2000] 2,000 unit PO DAILY 03/11/17 [History] Cyanocobalamin (Vitamin B-12) [Vitamin B-12] 1,000 mcg PO DAILY 03/11/17 [ History] Fish Oil/[place]-3 Fatty Acids [Fish Oil 1,000 MG] 1 gm PO DAILY 03/11/17 [History ] L.acidoph,Paracasei, B.lactis [Probiotic] 1 each PO DAILY 03/11/17 [History] Lutein 6 mg PO DAILY 03/11/17 [History] Zinc 50 mg PO DAILY 03/11/17 [History] Past Medical History HEENT History: Reports: Other (See Below) Other HEENT History: detatch retina right eye Cardiovascular History: Reports: Afib, CAD, Hypertension, CA, Stents Respiratory History: Reports: COPD, Other (See Below) Other Respiratory History: Pulmonary HTN Gastrointestinal History: Reports: Chronic Constipation, Hemorrhoids Genitourinary History: Reports: UTI, Recurrent [employer]IVER History: Reports: Musculoskeletal History: Reports: Other (See Below) Other Musculoskeletal History: carpal tunnel syndrome. back surgery , fussion (L ,3,4,5) Neurological History: Reports: None Psychiatric History: Reports: Anxiety, Depression Endocrine/Metabolic History: Reports: Osteoporosis Hematologic History: Reports: None Immunologic History: Reports: None Oncologic (Cancer) History: Reports: Other (See Below) Dermatologic History: Reports: None, Other (See Below) - Infectious Disease History Infectious Disease History: Reports: Chicken Pox - Past Surgical History Head Surgeries/Procedures: Reports: None HEENT Surgical History: Reports: Eye Surgery Cardiovascular Surgical History: Reports: Carotid Stents, Pacer Respiratory Surgical History: Reports: None GI Surgical History: Reports: Appendectomy Female Surgical History: Reports: Hysterectomy, Other (See Below) Other Female Surgeries/Procedures: Bladder repair Endocrine Surgical History: Reports: None Neurological Surgical History: Reports: None Musculoskeletal Surgical History: Reports: Other (See Below) Other Musculoskeletal Surgeries/Procedures:: torn achilles tendon repair, carpal tunnel Dermatological Surgical History: Reports: None Social & Family History - Family History Family Medical History: Noncontributory HEENT: Reports: Glaucoma, Macular Degeneration Cardiac: Reports: CA GI: Reports: None Neurological: Reports: CVA Oncologic: Reports: Breast, Skin, Uterine - Tobacco Use Smoking Status *Q: Former Smoker Years of Tobacco use: 20 Used Tobacco, but Quit: Yes Month Tobacco Last Used: 1969 Second Hand Smoke Exposure: No - Caffeine Use Caffeine Use: Reports: Coffee - Recreational Drug Use Recreational Drug Use: No ED ROS GENERAL - Review of Systems Review Of Systems: ROS reveals no pertinent complaints other than HPI. ED EXAM, GENERAL - Physical Exam Exam: See Below (see dictation) Course - Vital Signs Last Recorded V/S: Last Vital Signs Temp 36.1 C 08/31/17 15:36 Pulse 70 08/31/17 16:34 Resp 16 08/31/17 15:36 BP 104/57 L 08/31/17 16:34 Pulse Ox 95 08/31/17 15:36 Departure - Departure Time of Disposition: 16:54 Disposition: Home, Self-Care 01 Condition: Good Clinical Impression: Periorbital hematoma of right eye Mild closed head injury Qualifiers: Encounter type: initial encounter Qualified Code(s): S09.90XA - Unspecified injury of head, initial encounter - Discharge Information Referrals: Slade Dugan MD [Primary Care Provider] - Forms: ED Department Discharge Additional Instructions: The following information is given to patients seen in the emergency department who are being discharged to home. This information is to outline your options for follow-up care. We provide all patients seen in our emergency department with a follow-up referral. The need for follow-up, as well as the timing and circumstances, are variable depending upon the specifics of your emergency department visit. If you don't have a primary care physician on staff, we will provide you with a referral. We always advise you to contact your personal physician following an emergency department visit to inform them of the circumstance of the visit and for follow-up with them and/or the need for any referrals to a consulting specialist. The emergency department will also refer you to a specialist when appropriate. This referral assures that you have the opportunity for followup care with a specialist. All of these measure are taken in an effort to provide you with optimal care, which includes your followup. Under all circumstances we always encourage you to contact your private physician who remains a resource for coordinating your care. When calling for followup care, please make the office aware that this follow-up is from your recent emergency room visit. If for any reason you are refused follow-up, please contact the [facility] emergency department at and asked to speak to the emergency department charge nurse. No fractures or intracranial bleeds were noted on your exam today SHe did have a head CT scan that was normal Light pressure and cold compresses to the hematoma may be beneficial Follow-up with PCP next week
[2017-08-31 16:34] VITALS: BP 104/57
--- NOTE | 2017-08-31 16:36 | CT ---
EXAMINATION: Non contrast CT head. Coronal and sagittal reformats. HISTORY: Pain FINDINGS: No evidence of intra or extra axial hemorrhage, mass, midline shift, hydrocephalus or edema. Mild headley bcortical white matter hypodensities noted. No hypoattenuation changes in the major vascular territories to suggest acute infarct. No abnormal intracranial calcifications are detected. No evidence of substantial vascular calcificat ions. Paranasal sinuses and mastoid air cells are well aerated without substantial findings. Pituitary fossa appears unremarkable. Soft tissue hematoma is noted in the right periorbital supraorb ital region. Orbits and globes appear intact. Calvarium is intact. No evidence of skull fracture. IMPRESSION: 1. No acute intracranial findings. 2. Likely early small vessel ischemic changes.
== END 2017-08-31 17:00 | disposition home or self-care (01) ==
LOC: MW.ED 15:31
DX: S00.11XA Contusion of right eyelid and periocular area, initial encounter (principal); S09.90XA Unspecified injury of head, initial encounter; I10 Essential (primary) hypertension; I25.10 Atherosclerotic heart disease of native coronary artery without angina pectoris; J44.9 Chronic obstructive pulmonary disease, unspecified; Z87.891 Personal history of nicotine dependence; Z95.5 Presence of coronary angioplasty implant and graft; Z79.02 Long term (current) use of antithrombotics/antiplatelets; Z79.82 Long term (current) use of aspirin; Z79.899 Other long term (current) drug therapy; Z88.2 Allergy status to sulfonamides; Z88.8 Allergy status to other drugs, medicaments and biological substances; W18.09XA Striking against other object with subsequent fall, initial encounter; Y92.009 Unspecified place in unspecified non-institutional (private) residence as the place of occurrence of the external cause
CPT/HCPCS: 70450; 70450-26; 99283-25; 99284

== ENCOUNTER 2017-10-17 22:19 | Emergency (ER) | payer MEDICARE, BC ==
--- NOTE | 2017-10-17 22:32 | EDM.PDOC ---
ED HPI GENERAL MEDICAL PROBLEM - General Chief Complaint: Genitourinary Problem Stated Complaint: BLOOD IN URINE Time Seen by Provider: 10/17/17 22:32 - History of Present Illness INITIAL COMMENTS - FREE TEXT/NARRATIVE: HISTORY AND PHYSICAL: History of present illness: Patient is an 82-year-old female presents with concern of possible urinary tract infection patient states she had some slight discomfort with urination and blood in her urine tonight she's had similar episodes in the past she denies back pain nausea vomiting fever chills or other complaints Review of systems: As per history of present illness and below otherwise all systems reviewed and negative. Past medical history: As per history of present illness and as reviewed below otherwise noncontributory. Surgical history: As per history of present illness and as reviewed below otherwise noncontributory. Social history: No reported history of drug or alcohol abuse. Family history: As per history of present illness and as reviewed below otherwise noncontributory. Physical exam: HEENT: Atraumatic, normocephalic, pupils reactive, negative for conjunctival pallor or scleral icterus, mucous membranes moist, throat clear, neck supple, nontender, trachea midline. Lungs: Clear to auscultation, breath sounds equal bilaterally, chest nontender. Heart: S1S2, regular, negative for clicks, rubs, or JVD. Abdomen: Soft, nondistended, nontender. Negative for masses or hepatosplenomegaly. Negative for costovertebral tenderness. Pelvis: Stable nontender. Genitourinary: Deferred. Rectal: Deferred. Extremities: Atraumatic, negative for cords or calf pain. Neurovascular unremarkable. Neuro: Awake, alert, oriented. Cranial nerves II through XII unremarkable. Cerebellum unremarkable. Motor and sensory unremarkable throughout. Exam nonfocal. Diagnostics: UA culture and sensitivity Therapeutics: None Impression: 1 history of hematuria to UTI Definitive disposition and diagnosis as appropriate pending reevaluation and review of above. - Related Data Allergies Allergy/AdvReac Type Severity Reaction Status Date / Time hydrochlorothiazide Allergy Cannot Verified 10/17/17 22:29 Remember Sulfa (Sulfonamide Allergy Hives Verified 10/17/17 22:29 Antibiotics) Home Meds: Home Meds Furosemide 20 mg PO BID 06/21/15 [History] Losartan [Cozaar] 25 mg PO DAILY 06/21/15 [History] Metoprolol Tartrate 50 mg PO BID 06/21/15 [History] Omeprazole 20 mg PO ACBREAKFAST 06/21/15 [History] Simvastatin [Zocor] 20 mg PO BEDTIME 06/21/15 [History] Clopidogrel [Plavix] 75 mg PO DAILY 02/04/17 [History] Sertraline HCl 100 mg PO DAILY 02/04/17 [History] Spironolactone [Aldactone] 25 mg PO DAILY 02/04/17 [History] Metolazone [Zaroxolyn] 10 mg PO Q2D@0800 02/06/17 [History] Ondansetron 4 mg PO TID PRN 02/06/17 [History] Potassium Chloride [Klor-Con M20] 20 meq PO BID 02/06/17 [History] Tiotropium [place] [Spiriva Respimat] 5 mcg IH DAILY 02/06/17 [History] Albuterol Sulfate [Proair Hfa] 2 puff IH QID PRN 03/11/17 [History] Aspirin 81 mg PO BRK 03/11/17 [History] Cholecalciferol (Vitamin D3) [D3-2000] 2,000 unit PO DAILY 03/11/17 [History] Cyanocobalamin (Vitamin B-12) [Vitamin B-12] 1,000 mcg PO DAILY 03/11/17 [ History] Fish Oil/[place]-3 Fatty Acids [Fish Oil 1,000 MG] 1 gm PO DAILY 03/11/17 [History ] L.acidoph,Paracasei, B.lactis [Probiotic] 1 each PO DAILY 03/11/17 [History] Lutein 6 mg PO DAILY 03/11/17 [History] Zinc 50 mg PO DAILY 03/11/17 [History] Past Medical History HEENT History: Reports: Other (See Below) Other HEENT History: detatch retina right eye Cardiovascular History: Reports: Afib, CAD, Hypertension, [place], Stents Respiratory History: Reports: COPD, Other (See Below) Other Respiratory History: Pulmonary HTN Gastrointestinal History: Reports: Chronic Constipation, Hemorrhoids Genitourinary History: Reports: UTI, Recurrent [employer] History: Reports: Musculoskeletal History: Reports: Other (See Below) Other Musculoskeletal History: carpal tunnel syndrome. back surgery , fussion (L ,3,4,5) Neurological History: Reports: None Psychiatric History: Reports: Anxiety, Depression Endocrine/Metabolic History: Reports: Osteoporosis Hematologic History: Reports: None Immunologic History: Reports: None Oncologic (Cancer) History: Reports: Other (See Below) Dermatologic History: Reports: None, Other (See Below) - Infectious Disease History Infectious Disease History: Reports: Chicken Pox - Past Surgical History Head Surgeries/Procedures: Reports: None HEENT Surgical History: Reports: Eye Surgery Cardiovascular Surgical History: Reports: Carotid Stents, Pacer Respiratory Surgical History: Reports: None GI Surgical History: Reports: Appendectomy Female Surgical History: Reports: Hysterectomy, Other (See Below) Other Female Surgeries/Procedures: Bladder repair Endocrine Surgical History: Reports: None Neurological Surgical History: Reports: None Musculoskeletal Surgical History: Reports: Other (See Below) Other Musculoskeletal Surgeries/Procedures:: torn achilles tendon repair, carpal tunnel Dermatological Surgical History: Reports: None Social & Family History - Family History Family Medical History: Noncontributory HEENT: Reports: Glaucoma, Macular Degeneration Cardiac: Reports: [place] GI: Reports: None Neurological: Reports: CVA Oncologic: Reports: Breast, Skin, Uterine - Tobacco Use Smoking Status *Q: Former Smoker Years of Tobacco use: 20 Used Tobacco, but Quit: Yes Month Tobacco Last Used: 1969 Second Hand Smoke Exposure: No - Caffeine Use Caffeine Use: Reports: Coffee - Recreational Drug Use Recreational Drug Use: No ED ROS GENERAL - Review of Systems Review Of Systems: ROS reveals no pertinent complaints other than HPI. ED EXAM, GENERAL - Physical Exam Exam: See Below (See dictation) Course - Orders/Labs/Meds Orders: Active Orders 24 hr Category Date Time Status CULTURE URINE [RM] Stat Lab 10/17/17 22:23 Uncollected UA W/MICROSCOPIC [URIN] Stat Lab 10/17/17 22:23 Uncollected Departure - Departure Time of Disposition: 22:32 Disposition: Home, Self-Care 01 Condition: Good Clinical Impression: UTI, Urinary tract infectious disease - Discharge Information Referrals: PCP,Unknown [Primary Care Provider] - Additional Instructions: The following information is given to patients seen in the emergency department who are being discharged to home. This information is to outline your options for follow-up care. We provide all patients seen in our emergency department with a follow-up referral. The need for follow-up, as well as the timing and circumstances, are variable depending upon the specifics of your emergency department visit. If you don't have a primary care physician on staff, we will provide you with a referral. We always advise you to contact your personal physician following an emergency department visit to inform them of the circumstance of the visit and for follow-up with them and/or the need for any referrals to a consulting specialist. The emergency department will also refer you to a specialist when appropriate. This referral assures that you have the opportunity for followup care with a specialist. All of these measure are taken in an effort to provide you with optimal care, which includes your followup. Under all circumstances we always encourage you to contact your private physician who remains a resource for coordinating your care. When calling for followup care, please make the office aware that this follow-up is from your recent emergency room visit. If for any reason you are refused follow-up, please contact the [facility] emergency department at and asked to speak to the emergency department charge nurse. Cipro as prescribed push fluids continue current medications follow-up primary medical doctor as needed as discussed and return as needed as discussed - My Orders Last 24 Hours: My Active Orders 10/17/17 22:23 CULTURE URINE [RM] Stat UA W/MICROSCOPIC [URIN] Stat - Assessment/Plan Last 24 Hours: My Active Orders 10/17/17 22:23 CULTURE URINE [RM] Stat UA W/MICROSCOPIC [URIN] Stat
[2017-10-17 22:56] VITALS: BP 137/78
== END 2017-10-17 22:58 | disposition home or self-care (01) ==
LOC: MW.ED 22:19
DX: N39.0 Urinary tract infection, site not specified (principal); I10 Essential (primary) hypertension; I25.2 Old myocardial infarction; Z88.8 Allergy status to other drugs, medicaments and biological substances; Z88.2 Allergy status to sulfonamides; Z79.899 Other long term (current) drug therapy; Z87.891 Personal history of nicotine dependence
CPT/HCPCS: 81001; 87086; 87088; 87186; 99283

== ENCOUNTER 2022-05-14 20:18 | Observation (INO) | payer MEDICARE, BC ==
[2022-05-14] MEDS ORDERED: Sodium Chloride 0.9% 1,000 ML IV ONE (20:37)
[2022-05-14 21:11] LABS: CARBON DIOXIDE,CO2 24.6 mmol/L (21.0-32.0); POTASSIUM,K 4.4 mmol/L (3.5-5.1)
[2022-05-14] MEDS ORDERED: Dexamethasone 10 MG/ML SDV IVPUSH ONE (21:50)
[2022-05-14] MEDS ORDERED: Ondansetron 4 MG/2 ML SDV IVPUSH ONE (21:55)
[2022-05-14] MEDS ORDERED: Ondansetron 4 MG/2 ML SDV IVPUSH PRN (23:43)
[2022-05-14] MEDS ORDERED: Acetaminophen 325 MG Tab PO PRN (23:43)
[2022-05-14] MEDS ORDERED: Albuterol/Ipratropium 3.0-0.5 MG/3 ML Neb Soln NEB PRN (23:43)
[2022-05-14] MEDS ORDERED: Pantoprazole 40 MG in Sodium Chloride 0.9% 10 ML IVPUSH SCH (23:45)
[2022-05-14] MEDS ORDERED: Enoxaparin 30 MG/0.3 ML Syringe SUBCUT SCH (23:45)
[2022-05-14] MEDS ORDERED: Lactated Ringers 1,000 ML IV SCH (23:45)
[2022-05-15] MEDS ORDERED: REMDESIVIR 200 MG in Sodium Chloride 0.9% 250 ML IV ONE ×2
[2022-05-15 06:13] LABS: CARBON DIOXIDE,CO2 29.2 mmol/L (21.0-32.0); POTASSIUM,K 4.3 mmol/L (3.5-5.1)
[2022-05-15] MEDS ORDERED: Clopidogrel 75 MG Tab PO SCH (09:00)
[2022-05-15] MEDS ORDERED: Aspirin 81 MG Tab.Chew PO SCH (09:00)
[2022-05-15] MEDS ORDERED: Fish Oil/Omega-3 Fatty Acids 1 Gm Cap PO SCH (09:00)
[2022-05-15] MEDS ORDERED: Metoprolol Tartrate 50 MG Tab PO SCH (09:00)
[2022-05-15] MEDS ORDERED: Sertraline 100 MG Tab PO SCH (09:00)
[2022-05-15] MEDS ORDERED: Dexamethasone 4 MG Tab PO SCH (09:00)
[2022-05-15] MEDS ORDERED: Acidophilus with Citrus Pectin/L.acidophilus Tab PO SCH (09:00)
[2022-05-15] MEDS ORDERED: Warfarin 2 MG Tab PO ONE (14:00)
[2022-05-15] MEDS ORDERED: Warfarin Sliding Scale PO SCH (14:00)
[2022-05-15 17:55] VITALS: BP 113/76; PULSE 78
[2022-05-15] MEDS ORDERED: Simvastatin 20 MG Tab PO SCH (21:00)
[2022-05-15] MEDS ORDERED: Enoxaparin 30 MG/0.3 ML Syringe SUBCUT SCH (23:45)
[2022-05-16] MEDS ORDERED: REMDESIVIR 100 MG in Sodium Chloride 0.9% 100 ML IV SCH ×2
== END 2022-05-15 19:15 | disposition home or self-care (01) ==
LOC: MW.ED 20:18 → MW.MS 21:51
PROVIDERS: ADMIT Student in an Organized Health Care Education/Training Program; ATTEND Student in an Organized Health Care Education/Training Program
DX: U07.1 COVID-19 (principal); J96.21 Acute and chronic respiratory failure with hypoxia; I11.0 Hypertensive heart disease with heart failure; N17.9 Acute kidney failure, unspecified; I50.9 Heart failure, unspecified; J44.9 Chronic obstructive pulmonary disease, unspecified; I25.2 Old myocardial infarction; I48.91 Unspecified atrial fibrillation; E86.0 Dehydration; Z95.0 Presence of cardiac pacemaker; Z88.2 Allergy status to sulfonamides; Z88.8 Allergy status to other drugs, medicaments and biological substances; Z79.899 Other long term (current) drug therapy
CPT/HCPCS: 36415; 71045; 80053; 81001; 82248; 83735; 83880; 84100; 84484; 85025; 85610; 93005; 96361; 96365; 96372; 96374; 96375; 99285; A9270; C9113; G0378; J1100; J1650; J2405; J3490; J7030; J7050; J7120; J8540; U0002; 93010; 99284

== ENCOUNTER 2022-07-14 22:36 | Emergency (ER) | payer MEDICARE, BC ==
[2022-07-14 22:59] VITALS: BP 137/60; PULSE 76
[2022-07-14] MEDS ORDERED: Orphenadrine 60 MG/2 ML Inj IM ONE (23:34)
[2022-07-14] MEDS ORDERED: Ketorolac 30 MG/ML SDV IM ONE (23:34)
[2022-07-15] MEDS ORDERED: fentaNYL 50 MCG/ML SDV IM ONE (02:12)
== END 2022-07-15 02:34 | disposition home or self-care (01) ==
LOC: MW.ED 22:36
DX: M54.50 Low back pain, unspecified (principal); I10 Essential (primary) hypertension; I25.2 Old myocardial infarction; I48.91 Unspecified atrial fibrillation; Z88.5 Allergy status to narcotic agent; Z88.2 Allergy status to sulfonamides; Z88.8 Allergy status to other drugs, medicaments and biological substances; Z79.01 Long term (current) use of anticoagulants; Z79.899 Other long term (current) drug therapy
CPT/HCPCS: 96372; 99283; J1885; J2360; J3010